=== PATIENT | male | born 1965 | race Caucasian/White ===

== ENCOUNTER 2016-06-28 20:02 | Emergency (ER) | payer OTHER ==
[~2016-06-28 20:02] MED LIST: CIPR500T3 PO; FLOM5CAP PO; HYDR1TAB97 PO; LISI20TA3 PO; OMEP40CA2 PO; ZANT1TAB PO; ZOFR4TAB3 PO
[2016-06-28] MEDS ORDERED: NORCO 5/325MG TABLET (BULK) As Ordered ONE (21:38)
[2016-06-28] MEDS ORDERED: IBUPROFEN 800 MG TAB As Ordered ONE (21:38)
[2016-06-28] MEDS ORDERED: CLINDAMYCIN 150 MG CAP As Ordered ONE (21:38)
--- NOTE | 2016-06-28 21:46 | EDDOCDS ---
Nurse's Notes [facility] Name: Cash Ch Age: 51 yrs Sex: Male : 1965 Arrival Date: 06/28/2016 Time: 20:02 Bed Triage 3 Private MD: TERRI MENSAH Diagnosis: Dental caries-Tooth Pain/Abscess/Fracture Presentation: 06/28 20:07 Presenting complaint: Patient states: Patient reports having tooth pain, present for jmb two days. Pain worse today. Patient denies calling dentist. Patient reports taking ibuprofen for pain. Adult Sepsis Screening: The patient does not have new or worsening altered mentation. Patient's respiratory rate is less than 22. Systolic blood pressure is greater than 100. Patient has a qSOFA score of 0- Negative Sepsis Screen. Suicide/Homicide risk assessment- the patient denies having any suicidal and/or homicidal ideations and does not present with any other emotional, behavioral or mental health complaints. Status: Patient is not a community services coordinator or dependent. Transition of care: patient was not received from another setting of care. 20:07 Acuity: RONI Level 5 jmb 20:07 Method Of Arrival: Walkin/Carried/Asstd jmb Triage Assessment: 20:09 General: Appears in no apparent distress, Behavior is appropriate for age, cooperative. jmb Pain: Location: mouth Pain currently is 10 out of 10 on a pain scale. HIV screening NA for this visit Offered previously. Neurological: Level of Consciousness is awake, alert, obeys commands, Oriented to person, place, time, Speech is normal, Facial symmetry appears normal, Facial symmetry: tongue is midline. EENT: Reports pain Pain is 10 out of 10 on a pain scale. Respiratory: Airway is patent Respiratory effort is even, Respiratory pattern is regular. GI: Abdomen is obese. Derm: Skin is pink, warm & dry. Musculoskeletal: Range of motion intact in all extremities. Historical: - Allergies: No known drug Allergies; - Home Meds: 1. lisinopril-hydrochlorothiazide 20-25 mg oral tab 1 tab once daily (Last dose: 06/28/2016 19:00) 2. omeprazole 40 mg Oral cpDR 1 cap once daily (Last dose: 06/28/2016 19:00) - PMHx: GERD; Hypertension; Kidney stones; - PSHx: elbow surgery; nipple tissue removal; Lithotripsy; - Social history: Smoking status: Patient uses tobacco products, heavy tobacco smoker. No barriers to communication noted, The patient speaks fluent Malaysian, Speaks appropriately for age. - Family history: Not pertinent. - : The pt / caregiver states he / she is not on anticoagulants. Home medication list is obtained from the patient. - Exposure Risk Screening:: None identified. Screenin:43 Screening information is obtained from the patient. Fall risk: No risks identified. ttb Assistance ADL's: requires no assistance with activities of daily living. Abuse/DV Screen: The patient / caregiver reports he/she is: not in a situation that causes fear, pain or injury. Nutritional screening: No deficits noted. Advance Directives: Currently, there is no health care proxy. home support is adequate. Assessment: 21:43 Adult Sepsis Screening: The patient does not have new or worsening altered mentation. ttb Patient's respiratory rate is less than 22. Systolic blood pressure is greater than 100. Patient has a qSOFA score of 0- Negative Sepsis Screen. General: Appears in no apparent distress, well nourished, well groomed, Behavior is appropriate for age, cooperative, pleasant. Pain: Location: right side of mouth, molars Pain currently is 9 out of 10 on a pain scale. Neurological: Level of Consciousness is awake, alert, Oriented to person, place, time. Cardiovascular: Chest pain is denied. Respiratory: No deficits noted. Airway is patent Respiratory effort is even, unlabored. GI: Denies nausea, vomiting, pain. Derm: Skin is pink, warm & dry. Vital Signs: 20:04 BP 169 / 85; Pulse 107; Resp 18 S; Temp 96.9; Pulse Ox 99% on R/A; Weight 108.86 kg dd6 (R); Height 5 ft. 11 in. (180.34 cm) (R); 21:31 BP 140 / 72 LA Sitting (man/reg); cln 21:41 Pulse 106; Resp 18; Temp 98.6; Pulse Ox 97% on R/A; Pain 9/10; ttb 20:04 Body Mass Index 33.47 (108.86 kg, 180.34 cm) dd6 Vitals: 20:04 Log In Time: June 28, 2016 at 20:02. dd6 ED Course: 20:04 Patient visited by Chris Nichols PCA. dd6 20:04 Francisco Mensah is Private Physician. dd6 20:04 TERRI MENSAH is Private Physician. dd6 20:04 Patient moved to Waiting dd6 20:05 Patient moved to Pre RCE dd6 20:08 Triage Initiated jmb 20:24 Patient moved to Triage 2 jmb 20:25 Patient moved to Pre RCE jmb 21:12 Patient moved to Triage 3 jmb 21:13 Odalys Richardson PA-C is PHCP. ef1 21:13 Del Wyman DO is Attending Physician. ef1 21:15 Patient visited by Sena Shipley,FLORES. ead 21:20 Patient visited by Odalys Richardson PA-C. ef1 21:31 Patient visited by Roxann Phelps PCA. cln 21:33 Patient visited by Sena Shipley,FLORES. ead 21:36 Ricky Brewer is Referral Physician. ef1 21:43 The patient / caregiver is instructed regarding the plan of care and ED course. Patient ttb has correct armband on for positive identification. 21:43 No IV's were initiated during this patient's visit. No procedures done that require ttb assistance. Administered Medications: 21:41 Drug: Clindamycin 300 mg [clindamycin 150 mg capsule (2 caps)] Route: PO; ttb 21:41 Drug: Ibuprofen 800 mg [ibuprofen 800 mg tablet (1 tabs)] Route: PO; ttb 21:43 Drug: HYDROcodone-acetaminophen 4 pack- 1 packets [hydrocodone 5 mg-acetaminophen 325 ttb mg tablet (1 tabs)] {Co-Signature: martha (Matteo Lara RN).} Route: PO; 21:43 Follow up: Response: Med's dispensed home ttb Order Results: There are currently no results for this order. Outcome: 21:36 Discharge ordered by Provider. ef1 21:43 Discharge Assessment: Patient awake, alert and oriented x 3. No cognitive and/or ttb functional deficits noted. Patient verbalized understanding of disposition instructions. Patient awake and alert. patient administered narcotics - no. The following High Risk Discharge criteria are identified: None. Discharged to home ambulatory. Condition: good Condition: stable Condition: improved. Discharge instructions given to patient, Instructed on discharge instructions, follow up and referral plans. medication usage, no driving heavy equipment, no drinking with medication, Demonstrated understanding of instructions, medications, no d/d with narcs Pt was receptive of discharge instructions/ teaching. Prescriptions given X 3. No special radiology studies were completed. Property :Personal belongings accompany Pt. 21:45 Patient left the ED. ttb Signatures: Chris Nichols, SENIOR HEALTH CONSULTANT SENIOR HEALTH CONSULTANT dd6 Odalys Richardson, STONEYC PACrowC ef1 Roseann Lawson RN RN Matteo Weeks RN RN Sena LópezRN RN Roxann Boudreaux, SENIOR HEALTH CONSULTANT SENIOR HEALTH CONSULTANT cln Matteo thomas MTDD
--- NOTE | 2016-06-28 21:46 | EDDOCDS ---
Physician Documentation [facility] Name: Cash Ch Age: 51 yrs Sex: Male : 1965 Arrival Date: 06/28/2016 Time: 20:02 Bed Triage 3 Private MD: TERRI MENSAH Disposition: 06/28/16 21:36 Discharged to Home/Self Care. Impression: Dental caries - Tooth Pain/Abscess/Fracture. - Condition is Stable. - Discharge Instructions: Dental Abscess, Dental Fracture, Dental Pain, [id number]. - Prescriptions for Clindamycin HCl 300 mg Oral Capsule - take 1 capsule by ORAL route every 6 hours; 40 capsule. Ibuprofen 800 mg Oral Tablet - take 1 tablet by ORAL route every 8 hours As needed take with food; 30 tablet. [place] 5- 325 mg Oral Tablet - take 1 tablet by ORAL route every 6 hours As needed MDD: 4 tabs; 6 tablet. - Dental Referral List, Medication Reconciliation, Local Pharmacy Hours form. - Follow up: Dentist Your; When: 1 - 2 days; Reason: Further diagnostic work-up, Recheck today's complaints, Continuance of care. Follow up: Emergency Department; Reason: Worsening of conditions. - Problem is new. - Symptoms have improved. Historical: - Allergies: No known drug Allergies; - Home Meds: 1. lisinopril-hydrochlorothiazide 20-25 mg oral tab 1 tab once daily (Last dose: 06/28/2016 19:00) 2. omeprazole 40 mg Oral cpDR 1 cap once daily (Last dose: 06/28/2016 19:00) - PMHx: GERD; Hypertension; Kidney stones; - PSHx: elbow surgery; nipple tissue removal; Lithotripsy; - Social history: Smoking status: Patient uses tobacco products, heavy tobacco smoker. No barriers to communication noted, The patient speaks fluent Portuguese, Speaks appropriately for age. - Family history: Not pertinent. - : The pt / caregiver states he / she is not on anticoagulants. Home medication list is obtained from the patient. - Exposure Risk Screening:: None identified. Vital Signs: 06/28 20:04 BP 169 / 85; Pulse 107; Resp 18 S; Temp 96.9; Pulse Ox 99% on R/A; Weight 108.86 kg / dd6 240 lbs (R); Height 5 ft. 11 in. (180.34 cm) (R); 21:31 BP 140 / 72 LA Sitting (man/reg); cln 21:41 Pulse 106; Resp 18; Temp 98.6; Pulse Ox 97% on R/A; Pain 9/10; ttb 20:04 Body Mass Index 33.47 (108.86 kg, 180.34 cm) dd6 MDM: 21:25 Recheck B/P ordered. ef1 21:35 HYDROcodone-acetaminophen 4 pack- 5 mg-325 mg 1 packets PO Per package directions; ef1 Dispense with patient. 1 po q4h prn for pain ordered. 21:35 Clindamycin 300 mg PO once ordered. ef1 21:35 Ibuprofen 800 mg PO once ordered. ef1 Administered Medications: 21:41 Drug: Clindamycin 300 mg [clindamycin 150 mg capsule (2 caps)] Route: PO; ttb 21:41 Drug: Ibuprofen 800 mg [ibuprofen 800 mg tablet (1 tabs)] Route: PO; ttb 21:43 Drug: HYDROcodone-acetaminophen 4 pack- 1 packets [hydrocodone 5 mg-acetaminophen 325 ttb mg tablet (1 tabs)] {Co-Signature: martha (Matteo Lara RN).} Route: PO; 21:43 Follow up: Response: Med's dispensed home ttb Signatures: Odalys Richardson PA-C PA-C ef1 Roseann Lawson RN RN ttb Becker, Joshua, RN RN jmb Joshua Becker RN jmb MTDD
--- NOTE | 2016-06-30 22:47 | EDDOCDS ---
Nurse's Notes [facility] Name: Cash Ch Age: 51 yrs Sex: Male : 1965 Arrival Date: 06/28/2016 Time: 20:02 Bed Triage 3 Private MD: TERRI MENSAH Diagnosis: Dental caries-Tooth Pain/Abscess/Fracture Presentation: 06/28 20:07 Presenting complaint: Patient states: Patient reports having tooth pain, present for jmb two days. Pain worse today. Patient denies calling dentist. Patient reports taking ibuprofen for pain. Adult Sepsis Screening: The patient does not have new or worsening altered mentation. Patient's respiratory rate is less than 22. Systolic blood pressure is greater than 100. Patient has a qSOFA score of 0- Negative Sepsis Screen. Suicide/Homicide risk assessment- the patient denies having any suicidal and/or homicidal ideations and does not present with any other emotional, behavioral or mental health complaints. Status: Patient is not a care services manager or dependent. Transition of care: patient was not received from another setting of care. 20:07 Acuity: RONI Level 5 jmb 20:07 Method Of Arrival: Walkin/Carried/Asstd jmb Triage Assessment: 20:09 General: Appears in no apparent distress, Behavior is appropriate for age, cooperative. jmb Pain: Location: mouth Pain currently is 10 out of 10 on a pain scale. HIV screening NA for this visit Offered previously. Neurological: Level of Consciousness is awake, alert, obeys commands, Oriented to person, place, time, Speech is normal, Facial symmetry appears normal, Facial symmetry: tongue is midline. EENT: Reports pain Pain is 10 out of 10 on a pain scale. Respiratory: Airway is patent Respiratory effort is even, Respiratory pattern is regular. GI: Abdomen is obese. Derm: Skin is pink, warm & dry. Musculoskeletal: Range of motion intact in all extremities. Historical: - Allergies: No known drug Allergies; - Home Meds: 1. lisinopril-hydrochlorothiazide 20-25 mg oral tab 1 tab once daily (Last dose: 06/28/2016 19:00) 2. omeprazole 40 mg Oral cpDR 1 cap once daily (Last dose: 06/28/2016 19:00) - PMHx: GERD; Hypertension; Kidney stones; - PSHx: elbow surgery; nipple tissue removal; Lithotripsy; - Social history: Smoking status: Patient uses tobacco products, heavy tobacco smoker. No barriers to communication noted, The patient speaks fluent Emirati, Speaks appropriately for age. - Family history: Not pertinent. - : The pt / caregiver states he / she is not on anticoagulants. Home medication list is obtained from the patient. - Exposure Risk Screening:: None identified. Screenin:43 Screening information is obtained from the patient. Fall risk: No risks identified. ttb Assistance ADL's: requires no assistance with activities of daily living. Abuse/DV Screen: The patient / caregiver reports he/she is: not in a situation that causes fear, pain or injury. Nutritional screening: No deficits noted. Advance Directives: Currently, there is no health care proxy. home support is adequate. Assessment: 21:43 Adult Sepsis Screening: The patient does not have new or worsening altered mentation. ttb Patient's respiratory rate is less than 22. Systolic blood pressure is greater than 100. Patient has a qSOFA score of 0- Negative Sepsis Screen. General: Appears in no apparent distress, well nourished, well groomed, Behavior is appropriate for age, cooperative, pleasant. Pain: Location: right side of mouth, molars Pain currently is 9 out of 10 on a pain scale. Neurological: Level of Consciousness is awake, alert, Oriented to person, place, time. Cardiovascular: Chest pain is denied. Respiratory: No deficits noted. Airway is patent Respiratory effort is even, unlabored. GI: Denies nausea, vomiting, pain. Derm: Skin is pink, warm & dry. Vital Signs: 20:04 BP 169 / 85; Pulse 107; Resp 18 S; Temp 96.9; Pulse Ox 99% on R/A; Weight 108.86 kg dd6 (R); Height 5 ft. 11 in. (180.34 cm) (R); 21:31 BP 140 / 72 LA Sitting (man/reg); cln 21:41 Pulse 106; Resp 18; Temp 98.6; Pulse Ox 97% on R/A; Pain 9/10; ttb 20:04 Body Mass Index 33.47 (108.86 kg, 180.34 cm) dd6 Vitals: 20:04 Log In Time: June 28, 2016 at 20:02. dd6 ED Course: 20:04 Patient visited by Chris Nichols, DEANDRA. dd6 20:04 Francisco Mensah is Private Physician. dd6 20:04 TERRI MENSAH is Private Physician. dd6 20:04 Patient moved to Waiting dd6 20:05 Patient moved to Pre RCE dd6 20:08 Triage Initiated jmb 20:24 Patient moved to Triage 2 jmb 20:25 Patient moved to Pre RCE jmb 21:12 Patient moved to Triage 3 jmb 21:13 Odalys Richardson PA-C is PHCP. ef1 21:13 Del Wyman DO is Attending Physician. ef1 21:15 Patient visited by Sena Shipley,FLORES. ead 21:20 Patient visited by Odalys Richardson PA-C. ef1 21:31 Patient visited by Roxann Phelps PCA. cln 21:33 Patient visited by Sena Shipley,FLORES. ead 21:36 Kenji Brewert is Referral Physician. ef1 21:43 The patient / caregiver is instructed regarding the plan of care and ED course. Patient ttb has correct armband on for positive identification. 21:43 No IV's were initiated during this patient's visit. No procedures done that require ttb assistance. 21:55 [facility] Payment Agreement was scanned into [employer] and attached to record. jpb 06/30 08:23 T-Sheet-- Draft Copy was scanned into [employer] and attached to record. gb Administered Medications: 06/28 21:41 Drug: Clindamycin 300 mg [clindamycin 150 mg capsule (2 caps)] Route: PO; ttb 21:41 Drug: Ibuprofen 800 mg [ibuprofen 800 mg tablet (1 tabs)] Route: PO; ttb 21:43 Drug: HYDROcodone-acetaminophen 4 pack- 1 packets [hydrocodone 5 mg-acetaminophen 325 ttb mg tablet (1 tabs)] {Co-Signature: martha (Matteo Lara RN).} Route: PO; 21:43 Follow up: Response: Med's dispensed home ttb Order Results: There are currently no results for this order. Outcome: 21:36 Discharge ordered by Provider. ef1 21:43 Discharge Assessment: Patient awake, alert and oriented x 3. No cognitive and/or ttb functional deficits noted. Patient verbalized understanding of disposition instructions. Patient awake and alert. patient administered narcotics - no. The following High Risk Discharge criteria are identified: None. Discharged to home ambulatory. Condition: good Condition: stable Condition: improved. Discharge instructions given to patient, Instructed on discharge instructions, follow up and referral plans. medication usage, no driving heavy equipment, no drinking with medication, Demonstrated understanding of instructions, medications, no d/d with narcs Pt was receptive of discharge instructions/ teaching. Prescriptions given X 3. No special radiology studies were completed. Property :Personal belongings accompany Pt. 21:45 Patient left the ED. ttb Signatures: Aubrie Gomez, Reg Reg gb Chris Nichols, PAPER COLORER PAPER COLORER dd6 Odalys Richardson, PA-C PA-C ef1 Brigido Diamond Teresa, RN RN Matteo Weeks,RN RN Sena LópezRN RN Roxann Boudreaux, PAPER COLORER PAPER COLORER cln Matteo thomas Chart Complete MTDLeoncio
--- NOTE | 2016-06-30 22:47 | EDDOCDS ---
Physician Documentation [facility] Name: Cash Ch Age: 51 yrs Sex: Male : 1965 Arrival Date: 06/28/2016 Time: 20:02 Bed Triage 3 Private MD: TERRI MENSAH Disposition: 06/28/16 21:36 Discharged to Home/Self Care. Impression: Dental caries - Tooth Pain/Abscess/Fracture. - Condition is Stable. - Discharge Instructions: Dental Abscess, Dental Fracture, Dental Pain, [id number]. - Prescriptions for Clindamycin HCl 300 mg Oral Capsule - take 1 capsule by ORAL route every 6 hours; 40 capsule. Ibuprofen 800 mg Oral Tablet - take 1 tablet by ORAL route every 8 hours As needed take with food; 30 tablet. [place] 5- 325 mg Oral Tablet - take 1 tablet by ORAL route every 6 hours As needed MDD: 4 tabs; 6 tablet. - Dental Referral List, Medication Reconciliation, Local Pharmacy Hours form. - Follow up: Dentist Your; When: 1 - 2 days; Reason: Further diagnostic work-up, Recheck today's complaints, Continuance of care. Follow up: Emergency Department; Reason: Worsening of conditions. - Problem is new. - Symptoms have improved. Historical: - Allergies: No known drug Allergies; - Home Meds: 1. lisinopril-hydrochlorothiazide 20-25 mg oral tab 1 tab once daily (Last dose: 06/28/2016 19:00) 2. omeprazole 40 mg Oral cpDR 1 cap once daily (Last dose: 06/28/2016 19:00) - PMHx: GERD; Hypertension; Kidney stones; - PSHx: elbow surgery; nipple tissue removal; Lithotripsy; - Social history: Smoking status: Patient uses tobacco products, heavy tobacco smoker. No barriers to communication noted, The patient speaks fluent Iraqi, Speaks appropriately for age. - Family history: Not pertinent. - : The pt / caregiver states he / she is not on anticoagulants. Home medication list is obtained from the patient. - Exposure Risk Screening:: None identified. Vital Signs: 06/28 20:04 BP 169 / 85; Pulse 107; Resp 18 S; Temp 96.9; Pulse Ox 99% on R/A; Weight 108.86 kg / dd6 240 lbs (R); Height 5 ft. 11 in. (180.34 cm) (R); 21:31 BP 140 / 72 LA Sitting (man/reg); cln 21:41 Pulse 106; Resp 18; Temp 98.6; Pulse Ox 97% on R/A; Pain 9/10; ttb 20:04 Body Mass Index 33.47 (108.86 kg, 180.34 cm) dd6 MDM: 21:25 Recheck B/P ordered. ef1 21:35 HYDROcodone-acetaminophen 4 pack- 5 mg-325 mg 1 packets PO Per package directions; ef1 Dispense with patient. 1 po q4h prn for pain ordered. 21:35 Clindamycin 300 mg PO once ordered. ef1 21:35 Ibuprofen 800 mg PO once ordered. ef1 21:55 Financial registration complete. [facility] :55 [facility] Payment Agreement was scanned into [employer] and attached to record. [facility] 06/30 08:23 T-Sheet-- Draft Copy was scanned into [employer] and attached to record. gb Administered Medications: 06/28 21:41 Drug: Clindamycin 300 mg [clindamycin 150 mg capsule (2 caps)] Route: PO; ttb 21:41 Drug: Ibuprofen 800 mg [ibuprofen 800 mg tablet (1 tabs)] Route: PO; ttb 21:43 Drug: HYDROcodone-acetaminophen 4 pack- 1 packets [hydrocodone 5 mg-acetaminophen 325 ttb mg tablet (1 tabs)] {Co-Signature: martha (Matteo Lara RN).} Route: PO; 21:43 Follow up: Response: Med's dispensed home ttb Signatures: Aubrie Gomez, Reg Reg Odalys Stevenson, PACrowC PAMary ef1 Brigido Diamond Teresa, RN RN Matteo Weeks RN RN jmb Joshua Becker RN jmb The chart was reviewed and I authenticate all verbal orders and agree with the evaluation and treatment provided.Attachments: :55 [facility] Payment Agreement [facility] 06/30 08:23 T-Sheet-- Draft Copy gb Chart Complete MTDD
--- NOTE | 2016-06-30 22:47 | EDDOCDS ---
Physician Documentation [facility] Name: Cash Ch Age: 51 yrs Sex: Male : 1965 Arrival Date: 06/28/2016 Time: 20:02 Bed Triage 3 Private MD: TERRI MENSAH Disposition: 06/28/16 21:36 Discharged to Home/Self Care. Impression: Dental caries - Tooth Pain/Abscess/Fracture. - Condition is Stable. - Discharge Instructions: Dental Abscess, Dental Fracture, Dental Pain, [id number]. - Prescriptions for Clindamycin HCl 300 mg Oral Capsule - take 1 capsule by ORAL route every 6 hours; 40 capsule. Ibuprofen 800 mg Oral Tablet - take 1 tablet by ORAL route every 8 hours As needed take with food; 30 tablet. [place] 5- 325 mg Oral Tablet - take 1 tablet by ORAL route every 6 hours As needed MDD: 4 tabs; 6 tablet. - Dental Referral List, Medication Reconciliation, Local Pharmacy Hours form. - Follow up: Dentist Your; When: 1 - 2 days; Reason: Further diagnostic work-up, Recheck today's complaints, Continuance of care. Follow up: Emergency Department; Reason: Worsening of conditions. - Problem is new. - Symptoms have improved. Historical: - Allergies: No known drug Allergies; - Home Meds: 1. lisinopril-hydrochlorothiazide 20-25 mg oral tab 1 tab once daily (Last dose: 06/28/2016 19:00) 2. omeprazole 40 mg Oral cpDR 1 cap once daily (Last dose: 06/28/2016 19:00) - PMHx: GERD; Hypertension; Kidney stones; - PSHx: elbow surgery; nipple tissue removal; Lithotripsy; - Social history: Smoking status: Patient uses tobacco products, heavy tobacco smoker. No barriers to communication noted, The patient speaks fluent [place] Island[place], Speaks appropriately for age. - Family history: Not pertinent. - : The pt / caregiver states he / she is not on anticoagulants. Home medication list is obtained from the patient. - Exposure Risk Screening:: None identified. Vital Signs: 06/28 20:04 BP 169 / 85; Pulse 107; Resp 18 S; Temp 96.9; Pulse Ox 99% on R/A; Weight 108.86 kg / dd6 240 lbs (R); Height 5 ft. 11 in. (180.34 cm) (R); 21:31 BP 140 / 72 LA Sitting (man/reg); cln 21:41 Pulse 106; Resp 18; Temp 98.6; Pulse Ox 97% on R/A; Pain 9/10; ttb 20:04 Body Mass Index 33.47 (108.86 kg, 180.34 cm) dd6 MDM: 21:25 Recheck B/P ordered. ef1 21:35 HYDROcodone-acetaminophen 4 pack- 5 mg-325 mg 1 packets PO Per package directions; ef1 Dispense with patient. 1 po q4h prn for pain ordered. 21:35 Clindamycin 300 mg PO once ordered. ef1 21:35 Ibuprofen 800 mg PO once ordered. ef1 21:55 Financial registration complete. [facility] :55 [facility] Payment Agreement was scanned into [employer] and attached to record. [facility] 06/30 08:23 T-Sheet-- Draft Copy was scanned into [employer] and attached to record. gb Administered Medications: 06/28 21:41 Drug: Clindamycin 300 mg [clindamycin 150 mg capsule (2 caps)] Route: PO; ttb 21:41 Drug: Ibuprofen 800 mg [ibuprofen 800 mg tablet (1 tabs)] Route: PO; ttb 21:43 Drug: HYDROcodone-acetaminophen 4 pack- 1 packets [hydrocodone 5 mg-acetaminophen 325 ttb mg tablet (1 tabs)] {Co-Signature: martha (Matteo Lara RN).} Route: PO; 21:43 Follow up: Response: Med's dispensed home ttb Signatures: Aubrie Gomez, Reg Reg Odalys Stevenson, PACrowC PAMary ef1 Brigido Diamond Teresa, RN RN Matteo Weeks RN RN jmb Joshua Becker RN jmb The chart was reviewed and I authenticate all verbal orders and agree with the evaluation and treatment provided.Attachments: :55 [facility] Payment Agreement [facility] 06/30 08:23 T-Sheet-- Draft Copy gb Chart Complete MTDD
== END 2016-06-28 21:45 | disposition home or self-care (01) ==
LOC: M ED 20:02
DX: K04.7 Periapical abscess without sinus (principal); K02.9 Dental caries, unspecified; S02.5XXA Fracture of tooth (traumatic), initial encounter for closed fracture; X58.XXXA Exposure to other specified factors, initial encounter; Y92.89 Other specified places as the place of occurrence of the external cause; Y93.89 Activity, other specified; Y99.8 Other external cause status; I10 Essential (primary) hypertension; K21.9 Gastro-esophageal reflux disease without esophagitis; Z87.442 Personal history of urinary calculi; Z79.899 Other long term (current) drug therapy

== ENCOUNTER → 2016-07-07 | Outpatient (CLI) | payer OTHER ==
[~2016-07-07] MED LIST changes: +HYDR-3713 PO; -HYDR1TAB97 PO
== END ==
LOC: M RAD 17:26
PROVIDERS: ATTEND Family Medicine Addiction Medicine
DX: M25.512 Pain in left shoulder (principal); Z53.9 Procedure and treatment not carried out, unspecified reason

== ENCOUNTER → 2016-07-17 | Outpatient (CLI) | payer OTHER ==
--- NOTE | 2016-07-20 09:26 | SLEEPHOME ---
DATE OF PROCEDURE: 07/17/2016 ORDERED BY: Holli Barnard. INTERPRETATION: Diagnostic home sleep testing was performed due to concern for the obstructive sleep apnea syndrome in this patient with a history of excessive somnolence, nonrestorative sleep and comorbidities of hypertension. For testing, a NOX-T3 respiratory monitoring device was utilized. Continuous record was made of pulse, oxygen saturation, chest and abdominal strain, air flow and body position. 11 hours and 59 minutes of data were reviewed. Of these, 7 hours and 14 minutes were marked as time in bed. During the interval marked time in bed, there were 521 respiratory events identified of 10 seconds in duration or greater for a respiratory event index of 71.9. The events were primarily obstructive but both mixed and central apneas were seen. The patient's baseline pulse rate was 82 beats per minute. Pulse rate ranged 53-102. Baseline saturation 92.8%. Lowest oxygen saturation 65%. Testing was performed in both the supine and non-supine positions. IMPRESSION: Abnormal home sleep testing with repetitive respiratory events and oxygen desaturations to 65% with a respiratory event index of 71.9 is consistent with severe obstructive sleep apnea syndrome. RECOMMENDATION: The patient should be referred for in laboratory pressure titration.
== END ==
LOC: M SLEEP 07-12 15:42
PROVIDERS: ATTEND Nurse Practitioner Adult Health
DX: G47.30 Sleep apnea, unspecified (principal)

== ENCOUNTER → 2016-07-17 | Outpatient (CLI) | payer OTHER ==
--- NOTE | 2016-07-17 16:58 | REP ---
MRI LEFT SHOULDER: TECHNIQUE: Axial T2 fat sat, gradient echo, sagittal oblique T2 fat sat, coronal oblique T1, T2 fat sat. Supraspinatus tendon demonstrates mild diffuse increased signal which is ill-defined, compatible with tendinopathy/tendonitis. No focal rotator cuff tear is seen. Mild fluid in the adjacent subacromial subdeltoid bursae likely represents an element of bursitis. There are mild hypertrophic degenerative changes of the acromioclavicular joint with mildly curve shape of the acromion. Biceps tendon is within the bicipital groove with no tenosynovitis. There is no Hill Sach's deformity. Deltoid muscle demonstrates no abnormal signal. Biceps labral complex appears intact. There is no evidence of a SLAP lesion or labral tear. A few subchondral cysts are seen in the superomedial humeral head. There is no occult fracture. Mild subchondral marrow edema is seen in the acromion. There is no paralabral cyst. IMPRESSION: Supraspinatus tendinopathy/tendonitis without evidence of a rotator cuff tear. No labral tear. There appears to be mild subacromial subdeltoid bursitis. Mild hypertrophic degenerative changes of the acromioclavicular joint. Subchondral cystic changes of the humeral head. Signed by Gamaliel Sal MD 07/17/2016 05:05 P
== END ==
LOC: M RAD 15:14
PROVIDERS: ATTEND Family Medicine Addiction Medicine
DX: M75.32 Calcific tendinitis of left shoulder (principal)

== ENCOUNTER → 2016-08-25 | Outpatient (CLI) | payer OTHER ==
[2016-08-25 15:25] LABS: MEAN CORPUSCULAR HEMOGLOBIN 32.1 pg (27.0-33.0); MEAN CORPUSCULAR HGB CONC 35.8 g/dl (32.0-36.5); MEAN CORPUSCULAR VOLUME 89.5 fl (80.0-96.0); RED CELL DISTRIBUTION WIDTH 12.1 % (11.5-14.5); WHITE BLOOD COUNT 6.6 K/mm3 (4.0-10.0)
[2016-08-25 15:51] LABS: ANION GAP 5 MEQ/L (8-16); BLOOD UREA NITROGEN 17 MG/DL (7-18); CALCIUM LEVEL 9.4 MG/DL (8.5-10.1); CARBON DIOXIDE LEVEL 33 MEQ/L (21-32); CHLORIDE LEVEL 101 MEQ/L (98-107); CREATININE FOR GFR 1.15 MG/DL (0.70-1.30); GLOMERULAR FILTRATION RATE > 60.0 (>56); GLUCOSE, FASTING 151 MG/DL (70-105); SODIUM LEVEL 139 MEQ/L (136-145)
== END ==
LOC: M LAB 15:02
PROVIDERS: ATTEND Internal Medicine Cardiovascular Disease
DX: I25.10 Atherosclerotic heart disease of native coronary artery without angina pectoris (principal)

== ENCOUNTER → 2016-09-04 | Outpatient (CLI) | payer OTHER ==
--- NOTE | 2016-09-06 10:09 | SLEEPCENT ---
DATE OF STUDY: 09/04/2016 ORDERING PROVIDER: Holli Barnard NP Nocturnal polysomnography was performed for titration of pressure therapy in this patient with a clinical diagnosis of obstructive sleep apnea syndrome confirmed by home testing revealing a respiratory event index of 62. For testing, the patient was fit with a ResMed Quattro full face mask of medium size. 4 cm of water pressure were applied to the circuit, and the lights were extinguished. 7 hours and 15 minutes of data were reviewed. There were 279 minutes of sleep identified. Sleep latency was short at 3.5 minutes. Rapid eye movement (REM) sleep was delayed at 342 minutes. Sleep architecture improved late in the study. Periods of awake in the middle portion of the test resulted in a reduced sleep efficiency of 65%. The patient's electrocardiogram (EKG) showed a sinus rhythm with an average heart rate of 80 beats per minute. Electroencephalogram (EEG) showed reasonably normal waveforms for awake and sleep. Respiratory events were found best palliated with continuous positive airway pressure (CPAP) at a pressure of +9. CPAP tolerance was good. The remaining measures of sleep physiology were reasonably normal. IMPRESSION: Obstructive sleep apnea syndrome (G47.33). RECOMMENDATION: Nightly use of pressure therapy 9 cm of water.
== END ==
LOC: M SLEEP 19:49
PROVIDERS: ATTEND Nurse Practitioner Adult Health
DX: G47.33 Obstructive sleep apnea (adult) (pediatric) (principal)

== ENCOUNTER → 2016-11-16 | Outpatient (CLI) | payer OTHER | LOC: M LAB 10:38 | PROVIDERS: ATTEND Internal Medicine Cardiovascular Disease | DX: E78.2 Mixed hyperlipidemia (principal) ==

== ENCOUNTER 2016-12-14 20:03 | Emergency (ER) | payer OTHER ==
[~2016-12-14] VITALS: Ht 180.3 cm; Wt 103.7 kg
[2016-12-14 20:03] VITALS: BP 121/77
[2016-12-14] MEDS ORDERED: CARV6.25 PO (20:23)
[2016-12-14] MEDS ORDERED: CLOP75TA2 PO (20:23)
[2016-12-14] MEDS ORDERED: ATOR40TA75 PO (20:24)
[2016-12-14] MEDS ORDERED: AMOX500C PO (20:39)
[2016-12-14] MEDS ORDERED: IBUP80TA PO (20:39)
[2016-12-14] MEDS ORDERED: NORCO 5/325MG TABLET (BULK FOR ED) PO ONE (20:45)
[2016-12-14] MEDS ORDERED: AMOXICILLIN 500 MG CAP PO ONE (20:45)
== END 2016-12-14 21:09 | disposition home or self-care (01) ==
LOC: M ED 21:04
DX: G47.33 Obstructive sleep apnea (adult) (pediatric) (principal); G50.1 Atypical facial pain; H92.01 Otalgia, right ear; I10 Essential (primary) hypertension; I25.10 Atherosclerotic heart disease of native coronary artery without angina pectoris; K21.9 Gastro-esophageal reflux disease without esophagitis; F17.200 Nicotine dependence, unspecified, uncomplicated; Z87.442 Personal history of urinary calculi; Z95.5 Presence of coronary angioplasty implant and graft; Z79.02 Long term (current) use of antithrombotics/antiplatelets; Z79.899 Other long term (current) drug therapy

== ENCOUNTER → 2017-01-31 | Outpatient (CLI) | payer OTHER ==
[~2017-01-31] MED LIST changes: +AMOX500C PO; +ATOR40TA75 PO; +CARV6.25 PO; +CLOP75TA2 PO; +IBUP80TA PO
--- NOTE | 2017-01-31 16:07 | REP ---
PA and lateral chest: Comparison is 07/02/2012. The lung bonilla are clear. The cardiac size is normal The joseluis, mediastinum, and bony thorax are unremarkable. Impression: Negative PA and lateral chest. Signed by Gamaliel Dumont MD 01/31/2017 03:59 P
--- NOTE | 2017-01-31 23:00 | ECGEPIP ---
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
== END ==
LOC: M EKG 12:03
PROVIDERS: ATTEND Family Medicine Addiction Medicine
DX: M54.6 Pain in thoracic spine (principal); I25.798 Atherosclerosis of other coronary artery bypass graft(s) with other forms of angina pectoris

== ENCOUNTER → 2017-02-28 | Outpatient (CLI) | payer OTHER ==
[2017-02-28 18:20] LABS: MEAN CORPUSCULAR HEMOGLOBIN 31.9 pg (27.0-33.0); MEAN CORPUSCULAR HGB CONC 33.9 g/dl (32.0-36.5); MEAN CORPUSCULAR VOLUME 94.1 fl (80.0-96.0); RED CELL DISTRIBUTION WIDTH 12.7 % (11.5-14.5); WHITE BLOOD COUNT 5.8 K/mm3 (4.0-10.0)
== END ==
LOC: M LAB 15:58
PROVIDERS: ATTEND Nurse Practitioner Family
DX: I25.10 Atherosclerotic heart disease of native coronary artery without angina pectoris (principal)

== ENCOUNTER → 2017-03-07 | Outpatient (CLI) | payer OTHER ==
--- NOTE | 2017-03-07 19:13 | REP ---
Lumbar spine three views: Comparison is 09/29/2005. Vertebral body heights, interspacing alignment are normal and unchanged. The pedicles, facets and sacroiliac articulations are unremarkable and unchanged. Vascular calcified atheroma is incidentally noted in the abdominal aorta, unchanged. Impression: Negative lumbar spine. No interval change. Signed by Gamaliel Dumont MD 03/07/2017 07:03 P
== END ==
LOC: M LAB 17:09
PROVIDERS: ATTEND Family Medicine Addiction Medicine
DX: M54.5 Low back pain (principal)

== ENCOUNTER → 2017-05-22 | Outpatient (CLI) | payer OTHER ==
[2017-05-22 16:27] LABS: ALBUMIN 3.8 GM/DL (3.2-5.2); ALBUMIN/GLOBULIN RATIO 1.15 (1.00-1.93); BILIRUBIN,DIRECT 0.2 MG/DL (0.0-0.2); BILIRUBIN,TOTAL 0.5 MG/DL (0.2-1.0); TOTAL PROTEIN 7.1 GM/DL (6.4-8.2)
== END ==
LOC: M LAB 15:15
PROVIDERS: ATTEND Nurse Practitioner Family
DX: E78.2 Mixed hyperlipidemia (principal)

== ENCOUNTER → 2017-05-30 | Outpatient (CLI) | payer OTHER ==
--- NOTE | 2017-05-31 06:11 | REP ---
RIGHT ELBOW: CLINICAL: Pain. TECHNIQUE: AP, lateral, bilateral oblique views of the right elbow. COMPARISON: None. FINDINGS: Patient is noted to be status post prior open reduction and fixation for proximal ulnar fractures. Small loose bodies along the posterior aspect of the olecranon process are suggested along with mild posttraumatic degenerative changes. No acute fracture or dislocation. No effusion. IMPRESSION: Mild posttraumatic degenerative changes predominately noted along the posterior aspect of the ulna and olecranon process. Unreviewed
== END ==
LOC: M LAB 16:38
PROVIDERS: ATTEND Family Medicine Addiction Medicine
DX: M25.521 Pain in right elbow (principal)

== ENCOUNTER 2017-06-21 03:15 | Emergency (ER) | payer OTHER ==
[2017-06-21] MEDS ORDERED: LIDOCAINE W/EPINEPHRINE 1% 20ML VIAL As Ordered (03:59)
[2017-06-21] MEDS: LIDOCAINE W/EPINEPHRINE 1% 20ML VIAL SC (04:15)
[2017-06-21] MEDS: CETACAINE SPRAY 5GM TOP (04:15)
== END 2017-06-21 04:43 | disposition home or self-care (01) ==
LOC: M ED 03:15
DX: K08.89 Other specified disorders of teeth and supporting structures (principal); I10 Essential (primary) hypertension; E78.5 Hyperlipidemia, unspecified; K21.9 Gastro-esophageal reflux disease without esophagitis; F17.210 Nicotine dependence, cigarettes, uncomplicated; Z79.01 Long term (current) use of anticoagulants; Z79.899 Other long term (current) drug therapy
CPT/HCPCS: 64400

== ENCOUNTER 2017-11-20 04:48 | Emergency (ER) | payer OTHER ==
[2017-11-20] MEDS: NS 500 ML IV (06:30)
[2017-11-20 06:33] LABS: BASO # 0.1 10^3/uL (0.0-0.2); BASO % 0.8 % (0.0-1.0); EOS # 0.4 10^3/uL (0.0-0.50); EOS % 5.8 % (0.0-3.0); HEMATOCRIT 45.2 % (42.0-52.0); HEMOGLOBIN 15.8 g/dl (13.5-17.5); IMMATURE GRANULOCYTE % 0.1 % (0-3.0); LYMPH # 2.4 10^3/uL (1.5-4.5); LYMPH % 33.7 % (24.0-44.0); MEAN CORPUSCULAR HEMOGLOBIN 32.3 pg (27.0-33.0); MEAN CORPUSCULAR VOLUME 92.4 fl (80.0-96.0); MONO # 0.6 10^3/uL (0.0-0.8); MONO % 8.5 % (0.0-5.0); NEUTROPHILS # 3.6 10^3/uL (1.8-7.7); NEUTROPHILS % 51.1 % (36.0-66.0); PLATELET COUNT, AUTOMATED 201 10^3/uL (150-450); RED BLOOD COUNT 4.89 10^6/uL (4.30-6.10); RED CELL DISTRIBUTION WIDTH 12.5 % (11.5-14.5); WHITE BLOOD COUNT 7.1 10^3/uL (4.0-10.0)
[2017-11-20 06:37] LABS: ANION GAP 4 MEQ/L (8-16); BLOOD UREA NITROGEN 15 MG/DL (7-18); CALCIUM LEVEL 8.5 MG/DL (8.5-10.1); CARBON DIOXIDE LEVEL 27 MEQ/L (21-32); CHLORIDE LEVEL 112 MEQ/L (98-107); CREATININE FOR GFR 1.23 MG/DL (0.70-1.30); GLOMERULAR FILTRATION RATE > 60.0 (>56); GLUCOSE, FASTING 148 MG/DL (70-100); POTASSIUM SERUM 3.9 MEQ/L (3.5-5.1); SODIUM LEVEL 143 MEQ/L (136-145)
[2017-11-20] MEDS: MORPHINE 4 MG/ML 1ML VIAL/SYRINGE (J2270) IV (06:41)
[2017-11-20] MEDS: HYDROmorphone HCL 1 MG/ML SYRINGE (J1170) IV ×2 (07:17→08:14)
[2017-11-20 07:38] LABS: KETONE, URINE AUTO RFX TRACE mg/dL (NEGATIVE); LEUKOCYTE ESTERASE UR AUTO RFX TRACE (NEGATIVE); MUCUS, URINE RFX SMALL (NEGATIVE); NITRITE, URINE AUTO RFX NEGATIVE (NEGATIVE); RBC, URINE AUTO RFX 105 /HPF (0-3); SPECIFIC GRAVITY UR AUTO RFX 1.033 (1.002-1.035); SQUAM EPITHELIAL CELL UR AURFX 0 /HPF (0-6); WBC, URINE AUTO RFX 4 /HPF (0-3)
== END 2017-11-20 08:46 | disposition home or self-care (01) ==
LOC: M ED 04:48
DX: N20.1 Calculus of ureter (principal); N13.30 Unspecified hydronephrosis; K57.30 Diverticulosis of large intestine without perforation or abscess without bleeding; F17.200 Nicotine dependence, unspecified, uncomplicated; Z79.01 Long term (current) use of anticoagulants; Z79.82 Long term (current) use of aspirin; Z79.899 Other long term (current) drug therapy; Z87.442 Personal history of urinary calculi; Z95.5 Presence of coronary angioplasty implant and graft
CPT/HCPCS: J1170

== ENCOUNTER → 2017-12-19 | Outpatient (REF) | payer OTHER ==
[2017-12-19 18:47] LABS: APPEARANCE, URINE CLEAR (CLEAR); BACTERIA, URINE AUTO NEGATIVE (NEGATIVE); BILIRUBIN, URINE AUTO NEGATIVE (NEGATIVE); BLOOD, URINE BLOOD NEGATIVE (NEGATIVE); COLOR, URINE YELLOW (YELLOW); GLUCOSE, URINE (UA) AUTO NEGATIVE (NEGATIVE); KETONE, URINE AUTO TRACE mg/dL (NEGATIVE); LEUKOCYTE ESTERASE, URINE AUTO NEGATIVE (NEGATIVE); MUCUS, URINE SMALL (NEGATIVE); NITRITE, URINE AUTO NEGATIVE (NEGATIVE); PROTEIN, URINE AUTO NEGATIVE (NEGATIVE); RBC, URINE AUTO 0 /HPF (0-3); SQUAMOUS EPITHELIAL CELL UR AU 0 /HPF (0-6); WBC, URINE AUTO 2 /HPF (0-3)
== END ==
LOC: M SMT 17:06
DX: N20.0 Calculus of kidney (principal)

== ENCOUNTER → 2017-12-24 | Outpatient (CLI) | payer OTHER | LOC: M RAD 16:16 | DX: N20.0 Calculus of kidney (principal) | CPT/HCPCS: 74018 ==

== ENCOUNTER → 2018-03-11 | Outpatient (CLI) | payer OTHER ==
[2018-03-11 15:48] LABS: BASO % 0.3 % (0.0-1.0); EOS # 0.4 10^3/uL (0.0-0.50); HEMATOCRIT 43.5 % (42.0-52.0); IMMATURE GRANULOCYTE % 0.3 % (0-3.0); LYMPH # 1.4 10^3/uL (1.5-4.5); LYMPH % 24.6 % (24.0-44.0); MEAN CORPUSCULAR HEMOGLOBIN 31.9 pg (27.0-33.0); MEAN CORPUSCULAR HGB CONC 34.5 g/dl (32.0-36.5); MEAN CORPUSCULAR VOLUME 92.6 fl (80.0-96.0); MONO # 0.4 10^3/uL (0.0-0.8); MONO % 6.8 % (0.0-5.0); NEUTROPHILS # 3.6 10^3/uL (1.8-7.7); PLATELET COUNT, AUTOMATED 192 10^3/uL (150-450); RED CELL DISTRIBUTION WIDTH 12.2 % (11.5-14.5); WHITE BLOOD COUNT 5.9 10^3/uL (4.0-10.0)
[2018-03-11 16:21] LABS: ALBUMIN 3.7 GM/DL (3.2-5.2); ALBUMIN/GLOBULIN RATIO 1.32 (1.00-1.93); ALKALINE PHOSPHATASE 130 U/L (45-117); ALT/SGPT 44 U/L (12-78); ANION GAP 8 MEQ/L (8-16); AST/SGOT 23 U/L (7-37); BILIRUBIN,TOTAL 0.4 MG/DL (0.2-1.0); BLOOD UREA NITROGEN 13 MG/DL (7-18); CALCIUM LEVEL 9.2 MG/DL (8.5-10.1); CARBON DIOXIDE LEVEL 26 MEQ/L (21-32); CHLORIDE LEVEL 108 MEQ/L (98-107); CREATININE FOR GFR 0.98 MG/DL (0.70-1.30); GLOMERULAR FILTRATION RATE > 60.0 (>56); GLUCOSE, FASTING 103 MG/DL (70-100); SODIUM LEVEL 142 MEQ/L (136-145); TOTAL PROTEIN 6.5 GM/DL (6.4-8.2)
== END ==
LOC: M LAB 15:19
DX: I25.10 Atherosclerotic heart disease of native coronary artery without angina pectoris (principal)
CPT/HCPCS: 80053

== ENCOUNTER 2018-06-27 23:08 | Emergency (ER) | payer OTHER ==
[~2018-06-27] VITALS: Ht 180.3 cm; Wt 97.7 kg
[2018-06-27 23:08] VITALS: BP 145/77
[~2018-06-27 23:08] MED LIST changes: +ASPI81CH32 PO; +CLEO150C PO; +FLOM0.4C39 PO; -FLOM5CAP PO; +LISI-538 PO; +PERC5TAB12 PO; +ZANT150T15 PO; -ZANT1TAB PO; +ZOFR4TAB14 PO; -ZOFR4TAB3 PO
[2018-06-27] MEDS ORDERED: ONDANSETRON 4MG/2ML VIAL (J2405) IV ONE (23:30)
[2018-06-27] MEDS ORDERED: KETOROLAC 30 MG/ML VIAL (J1885) IV ONE (23:30)
[2018-06-27] MEDS ORDERED: NS 1,000 ML IV ONE (23:30)
[2018-06-28 00:11] LABS: BASO % 0.4 % (0.0-1.0); EOS # 0.2 10^3/uL (0.0-0.50); EOS % 2.8 % (0.0-3.0); HEMATOCRIT 42.1 % (42.0-52.0); HEMOGLOBIN 14.5 g/dl (13.5-17.5); LYMPH # 1.3 10^3/uL (1.5-4.5); LYMPH % 18.4 % (24.0-44.0); MEAN CORPUSCULAR HEMOGLOBIN 31.4 pg (27.0-33.0); MEAN CORPUSCULAR HGB CONC 34.4 g/dl (32.0-36.5); MEAN CORPUSCULAR VOLUME 91.1 fl (80.0-96.0); MONO # 0.7 10^3/uL (0.0-0.8); MONO % 9.5 % (0.0-5.0); NEUTROPHILS # 4.9 10^3/uL (1.8-7.7); NEUTROPHILS % 68.6 % (36.0-66.0); PLATELET COUNT, AUTOMATED 195 10^3/uL (150-450); RED BLOOD COUNT 4.62 10^6/uL (4.30-6.10); WHITE BLOOD COUNT 7.1 10^3/uL (4.0-10.0)
[2018-06-28 00:40] LABS: ALBUMIN 3.8 GM/DL (3.2-5.2); BILIRUBIN,DIRECT 0.1 MG/DL (0.0-0.2); BILIRUBIN,TOTAL 0.3 MG/DL (0.2-1.0); CALCIUM LEVEL 9.1 MG/DL (8.5-10.1); CREATININE FOR GFR 1.41 MG/DL (0.70-1.30); GLOMERULAR FILTRATION RATE 56.2 (>56); POTASSIUM SERUM 3.9 MEQ/L (3.5-5.1); TOTAL PROTEIN 7.1 GM/DL (6.4-8.2)
--- NOTE | 2018-06-28 01:34 | REPVR ---
EXAM: CT Abdomen and Pelvis Without Contrast EXAM DATE/TIME: 06/27/2018 11:30 PM CLINICAL HISTORY: 53 years old, male; Pain; Abdominal pain; Flank; Right; Additional info: Right flank pain TECHNIQUE: Axial computed tomography images of the abdomen and pelvis without contrast. All CT scans at this facility use at least one of these dose optimization techniques: automated exposure control; mA and/or kV adjustment per patient size (includes targeted exams where dose is matched to clinical indication); or iterative reconstruction. Coronal and sagittal reformatted images were created and reviewed. COMPARISON: CT ABD PELVIS W/O CONTRAST 11/20/2017 6:30 AM FINDINGS: Lower thorax: No acute findings. ABDOMEN: Liver: Normal. No mass. Gallbladder and bile ducts: Contracted gallbladder. Pancreas: Normal. No ductal dilation. Spleen: Normal. No splenomegaly. Adrenals: Normal. No mass. Kidneys and ureters: Mild to moderate right-sided hydroureteronephrosis with perinephric and periureteric stranding secondary to an obstructing stone in the mid right ureter in the abdomen adjacent to the psoas muscle measuring 4.5 mm. Bilateral nonobstructing renal stones are seen. These are measuring up to 3 mm. Stomach and bowel: Mild diverticulosis without CT evidence of diverticulitis. Appendix: Normal appendix. PELVIS: Bladder: Urinary bladder is not well distended and what appears to be thickened and irregular. Cystitis should be ruled out clinically. Reproductive: Prostate is prominent with prostatic calcification. ABDOMEN and PELVIS: Intraperitoneal space: Normal. No free air. No significant fluid collection. Bones/joints: No acute fracture. No dislocation. Soft tissues: Small fat containing inguinal hernias. Vasculature: Atherosclerosis. Lymph nodes: Normal. No enlarged lymph nodes. IMPRESSION: Mild to moderate right-sided hydroureteronephrosis with perinephric and periureteric stranding secondary to an obstructing stone in the mid right ureter in the abdomen adjacent to the psoas muscle measuring 4.5 mm. Bilateral nonobstructing renal stones are seen. These are measuring up to 3 mm. Electronically signed by: Priscila Smith On 06/28/2018 01:34:15 AM
[2018-06-28] MEDS ORDERED: PERC5TAB12 PO (01:50)
[2018-06-28] MEDS ORDERED: CIPR-249 PO (01:50)
[2018-06-28] MEDS ORDERED: FLOM0.4C39 PO (01:50)
[2018-06-28] MEDS ORDERED: CIPROFLOXACIN 500 MG TAB PO ONE (02:00)
[2018-06-28] MEDS ORDERED: OXYCODONE/APAP 5MG/325MG(BULK FOR ED) 1 TABLET PO ONE (02:00)
== END 2018-06-28 02:00 | disposition home or self-care (01) ==
LOC: M ED 23:08
DX: N10 Acute pyelonephritis (principal); N20.1 Calculus of ureter; N39.0 Urinary tract infection, site not specified; I10 Essential (primary) hypertension; E78.5 Hyperlipidemia, unspecified; Z87.442 Personal history of urinary calculi; K21.9 Gastro-esophageal reflux disease without esophagitis; Z95.5 Presence of coronary angioplasty implant and graft; Z72.0 Tobacco use; Z79.82 Long term (current) use of aspirin; Z79.899 Other long term (current) drug therapy
CPT/HCPCS: 36415; 74176; 80048; 80076; 81001; 85025; 87086; 96374; 96375; 99284; J1885; J2405

== ENCOUNTER → 2018-07-11 | Outpatient (CLI) | payer OTHER ==
[~2018-07-11] MED LIST changes: +CIPR-249 PO
--- NOTE | 2018-07-12 01:37 | REP ---
Clinical: Nephrolithiasis. Technique: Two supine views of the abdomen and pelvis. Findings: 2 - 3 mm intrarenal calculi are suspected bilaterally. Calcifications in the pelvis are nonspecific and may reflect phleboliths although distal ureteral calculi cannot be excluded. Bowel gas pattern is nonspecific. No obvious organomegaly. No mass or mass effect. Skeletal structures are intact. Impression: Small bilateral intrarenal calculi suggested. Electronically Signed by Morgan Meehan MD 07/12/2018 01:28 A
== END ==
LOC: M SMT 15:10
PROVIDERS: ATTEND Nurse Practitioner Family
DX: N20.0 Calculus of kidney (principal)

== ENCOUNTER → 2018-07-11 | Outpatient (REF) | payer OTHER ==
[2018-07-11 18:36] LABS: APPEARANCE, URINE CLEAR (CLEAR); BACTERIA, URINE AUTO NEGATIVE (NEGATIVE); BILIRUBIN, URINE AUTO NEGATIVE (NEGATIVE); BLOOD, URINE BLOOD NEGATIVE (NEGATIVE); COLOR, URINE YELLOW (YELLOW); GLUCOSE, URINE (UA) AUTO NEGATIVE (NEGATIVE); KETONE, URINE AUTO NEGATIVE (NEGATIVE); LEUKOCYTE ESTERASE, URINE AUTO NEGATIVE (NEGATIVE); MUCUS, URINE SMALL (NEGATIVE); NITRITE, URINE AUTO NEGATIVE (NEGATIVE); PROTEIN, URINE AUTO NEGATIVE (NEGATIVE); RBC, URINE AUTO 0 /HPF (0-3); SPECIFIC GRAVITY URINE AUTO 1.018 (1.002-1.035); SQUAMOUS EPITHELIAL CELL UR AU 0 /HPF (0-6); UROBILINOGEN, URINE AUTO 0.2 mg/dL (0.0-2.0); WBC, URINE AUTO 1 /HPF (0-3)
== END ==
LOC: M SMT 17:19
PROVIDERS: ATTEND Nurse Practitioner Family
DX: N20.0 Calculus of kidney (principal); N32.89 Other specified disorders of bladder

== ENCOUNTER 2018-08-30 02:33 | Emergency (ER) | payer OTHER ==
[~2018-08-30] VITALS: Ht 180.3 cm; Wt 97.7 kg
[2018-08-30 02:33] VITALS: BP 156/75
[2018-08-30] MEDS ORDERED: IBUP-1022 PO (02:51)
[2018-08-30] MEDS ORDERED: DOXY100C37 PO (03:05)
== END 2018-08-30 03:13 | disposition left against medical advice (07) ==
LOC: M ED 02:33
DX: K08.9 Disorder of teeth and supporting structures, unspecified (principal); K05.6 Periodontal disease, unspecified; I10 Essential (primary) hypertension; E78.00 Pure hypercholesterolemia, unspecified; K21.9 Gastro-esophageal reflux disease without esophagitis; Z87.891 Personal history of nicotine dependence; Z79.01 Long term (current) use of anticoagulants; Z79.899 Other long term (current) drug therapy; Z79.82 Long term (current) use of aspirin

== ENCOUNTER → 2018-10-25 | Outpatient (REF) | payer OTHER ==
[~2018-10-25] MED LIST changes: -ASPI81CH32 PO; +ASPI81CH33 PO; +DOXY100C37 PO; +IBUP-1022 PO
[2018-10-25 17:21] LABS: APPEARANCE, URINE CLEAR (CLEAR); BACTERIA, URINE AUTO NEGATIVE (NEGATIVE); BILIRUBIN, URINE AUTO NEGATIVE (NEGATIVE); BLOOD, URINE BLOOD NEGATIVE (NEGATIVE); COLOR, URINE YELLOW (YELLOW); GLUCOSE, URINE (UA) AUTO NEGATIVE (NEGATIVE); KETONE, URINE AUTO NEGATIVE (NEGATIVE); LEUKOCYTE ESTERASE, URINE AUTO NEGATIVE (NEGATIVE); NITRITE, URINE AUTO NEGATIVE (NEGATIVE); PROTEIN, URINE AUTO NEGATIVE (NEGATIVE); RBC, URINE AUTO 0 /HPF (0-3); SPECIFIC GRAVITY URINE AUTO 1.019 (1.002-1.035); SQUAMOUS EPITHELIAL CELL UR AU 0 /HPF (0-6); UROBILINOGEN, URINE AUTO 0.2 mg/dL (0.0-2.0); WBC, URINE AUTO 0 /HPF (0-3)
== END ==
LOC: M SMT 16:59
PROVIDERS: ATTEND Nurse Practitioner Family
DX: N20.0 Calculus of kidney (principal)

== ENCOUNTER → 2018-11-04 | Outpatient (CLI) | payer OTHER ==
--- NOTE | 2018-11-05 04:26 | REP ---
Clinical: Nephrolithiasis. Technique: Real time puga scale ultrasound examination using curved array transducer. Findings: The bilateral kidneys are normal in contour, size, parenchymal echogenicity and reniform shape without hydronephrosis. Right kidney measures 11.8 x 6.6 x 6.1 cm with sub centimeter cortical mid pole cyst and small scattered echogenic foci suggesting punctate nephroliths versus renovascular calcifications. Left kidney measures 12.0 x 6.1 x 5.0 cm and includes multiple echogenic foci suggesting punctate nonobstructing nephroliths versus renovascular calcifications including possible cluster versus 9 mm calculus in the upper pole. Bladder is incompletely distended but grossly normal as visualized. Impression: 1. Small bilateral nonobstructing intrarenal calculi versus renovascular calcifications. No hydronephrosis. 2. Small simple right renal cyst. Electronically Signed by Morgan Meehan MD 11/05/2018 04:17 A
== END ==
LOC: M RAD 12:32
PROVIDERS: ATTEND Nurse Practitioner Family
DX: N20.0 Calculus of kidney (principal); N28.1 Cyst of kidney, acquired

== ENCOUNTER → 2018-11-22 | Outpatient (CLI) | payer OTHER ==
--- NOTE | 2018-11-22 16:33 | REP ---
Clinical: Left-sided flank pain. Technique: Axial noncontrast images from the lung bases to the pubic symphysis with coronal and sagittal re-formations. Comparison: 06/27/2018. Findings: Bilateral perinephric stranding is appreciated along with small intrarenal calculi measuring up to 2 mm in the right kidney and 3 mm in left kidney without hydroureternephrosis or obstructing ureteral calculi. Differential diagnosis may include chronic changes as well as pyelonephritis and correlation with urinalysis is recommended. Liver, spleen, pancreas, gallbladder, and bilateral adrenal glands are normal. The enteric system is without obstruction or acute inflammatory process. Normal terminal ileum and appendix are identified in the right lower quadrant. Scattered colonic diverticula noted without acute diverticulitis. Pelvis demonstrates normal bladder and age appropriate prostate/seminal vesicles. Small early fat containing inguinal hernia suggested. No ascites. No free air. No adenopathy. Atherosclerotic changes of the aorta noted without aneurysm. Musculoskeletal structures without focal osseous abnormality. Impression: 1. Bilateral perinephric stranding and nonobstructing intrarenal calculi without hydroureternephrosis or obstructing calculus. Differential diagnosis may include chronic changes as well as pyelonephritis and correlation with urinalysis is recommended. 2. Scattered colonic diverticula without acute diverticulitis. 3. No further acute abdominopelvic pathology appreciated. Electronically Signed by Morgan Meehan MD 11/22/2018 04:24 P
== END ==
LOC: M RAD 16:04
PROVIDERS: ATTEND Nurse Practitioner Family
DX: R10.9 Unspecified abdominal pain (principal); N20.0 Calculus of kidney; K57.90 Diverticulosis of intestine, part unspecified, without perforation or abscess without bleeding

== ENCOUNTER 2019-01-06 17:18 | Emergency (ER) | payer OTHER ==
[~2019-01-06] VITALS: Ht 180.3 cm; Wt 102.3 kg
[2019-01-06] MEDS ORDERED: CARV3.12 PO (19:35)
[2019-01-06] MEDS ORDERED: IBUP80TA PO (19:35)
[2019-01-06] MEDS ORDERED: KEFL500C17 PO (20:37)
[2019-01-06 20:43] VITALS: BP 126/70
== END 2019-01-06 20:43 | disposition home or self-care (01) ==
LOC: M ED 17:18
DX: L02.213 Cutaneous abscess of chest wall (principal); I10 Essential (primary) hypertension; E78.00 Pure hypercholesterolemia, unspecified; K21.9 Gastro-esophageal reflux disease without esophagitis; G47.30 Sleep apnea, unspecified; Z79.899 Other long term (current) drug therapy; Z79.82 Long term (current) use of aspirin

== ENCOUNTER → 2019-04-23 | Outpatient (REF) | payer OTHER ==
[~2019-04-23] MED LIST changes: +CARV3.12 PO; +KEFL500C17 PO; +LISI20TA20 PO; -LISI20TA3 PO; -OMEP40CA2 PO; +OMEP40CA97 PO
[2019-04-23 13:00] LABS: BASO % 0.6 % (0.0-1.0); EOS # 0.3 10^3/uL (0.0-0.5); EOS % 5.6 % (0.0-3.0); HEMATOCRIT 40.6 % (42.0-52.0); HEMOGLOBIN 13.2 g/dl (13.5-17.5); LYMPH # 1.5 10^3/uL (1.5-5.0); LYMPH % 30.6 % (24.0-44.0); MEAN CORPUSCULAR HEMOGLOBIN 29.7 pg (27.0-33.0); MEAN CORPUSCULAR HGB CONC 32.5 g/dl (32.0-36.5); MEAN CORPUSCULAR VOLUME 91.4 fl (80.0-96.0); MONO # 0.5 10^3/uL (0.0-0.8); NEUTROPHILS # 2.6 10^3/uL (1.5-8.5); NEUTROPHILS % 52.8 % (36.0-66.0); PLATELET COUNT, AUTOMATED 175 10^3/uL (150-450); RED BLOOD COUNT 4.44 10^6/uL (4.30-6.10)
[2019-04-23 13:13] LABS: ALBUMIN 3.6 GM/DL (3.2-5.2); ALT/SGPT 37 U/L (12-78); BILIRUBIN,TOTAL 0.3 MG/DL (0.2-1.0); BLOOD UREA NITROGEN 13 MG/DL (7-18); CALCIUM LEVEL 8.8 MG/DL (8.5-10.1); CARBON DIOXIDE LEVEL 28 MEQ/L (21-32); CHLORIDE LEVEL 108 MEQ/L (98-107); CHOLESTEROL LEVEL 111 MG/DL (<200); CHOLESTEROL RISK RATIO 2.921 (<5); FREE T4 0.97 NG/DL (0.76-1.46); GLOMERULAR FILTRATION RATE > 60.0 (>56); GLUCOSE, FASTING 147 MG/DL (70-100); HDL CHOLESTEROL 38 MG/DL (>40); LDL CHOLESTEROL 54 MG/DL (<100); NON-HDL-C 73 MG/DL; SODIUM LEVEL 142 MEQ/L (136-145); TOTAL 25(OH) VITAMIN D 20.5 NG/ML (30.0-100.0); TOTAL PROTEIN 6.4 GM/DL (6.4-8.2); TRIGLYCERIDES LEVEL 94 MG/DL (<150)
[2019-04-23 13:19] LABS: HEMOGLOBIN A1c 5.9 %
[2019-04-25 00:08] LABS: Lyme Disease IgG/IgM Antibodie <0.91 ISR (0.00-0.90); Lyme Disease IgM Ab Quantitati <0.80 index (0.00-0.79)
== END ==
LOC: M LAB REF 12:32
PROVIDERS: ATTEND Family Medicine
DX: Z13.228 Encounter for screening for other metabolic disorders (principal); Z12.5 Encounter for screening for malignant neoplasm of prostate

== ENCOUNTER 2019-05-29 10:14 | Emergency (ER) | payer OTHER ==
[~2019-05-29] VITALS: Ht 180.3 cm; Wt 113.4 kg
[~2019-05-29 10:14] MED LIST changes: +D 101000 PO; +ISOS30TA4 PO
[2019-05-29 11:53] LABS: BASO % 0.8 % (0.0-1.0); EOS # 0.3 10^3/uL (0.0-0.5); EOS % 5.1 % (0.0-3.0); HEMATOCRIT 42.1 % (42.0-52.0); HEMOGLOBIN 13.8 g/dl (13.5-17.5); LYMPH # 1.5 10^3/uL (1.5-5.0); LYMPH % 29.6 % (24.0-44.0); MEAN CORPUSCULAR HEMOGLOBIN 29.5 pg (27.0-33.0); MEAN CORPUSCULAR HGB CONC 32.8 g/dl (32.0-36.5); MONO # 0.5 10^3/uL (0.0-0.8); MONO % 9.5 % (0.0-5.0); NEUTROPHILS # 2.7 10^3/uL (1.5-8.5); NEUTROPHILS % 54.8 % (36.0-66.0); PLATELET COUNT, AUTOMATED 183 10^3/uL (150-450); RED BLOOD COUNT 4.68 10^6/uL (4.30-6.10); WHITE BLOOD COUNT 4.9 10^3/uL (4.0-10.0)
[2019-05-29 12:13] LABS: ALBUMIN 3.6 GM/DL (3.2-5.2); ALT/SGPT 47 U/L (12-78); BILIRUBIN,DIRECT 0.2 MG/DL (0.0-0.2); BILIRUBIN,TOTAL 0.4 MG/DL (0.2-1.0); BLOOD UREA NITROGEN 13 MG/DL (7-18); CALCIUM LEVEL 9.6 MG/DL (8.5-10.1); CARBON DIOXIDE LEVEL 26 MEQ/L (21-32); CHLORIDE LEVEL 108 MEQ/L (98-107); CREATININE FOR GFR 1.07 MG/DL (0.70-1.30); GLOMERULAR FILTRATION RATE > 60.0 (>56); GLUCOSE, FASTING 111 MG/DL (70-100); LIPASE 220 U/L (73-393); POTASSIUM SERUM 4.2 MEQ/L (3.5-5.1); SODIUM LEVEL 143 MEQ/L (136-145); TOTAL PROTEIN 6.8 GM/DL (6.4-8.2)
[2019-05-29] MEDS ORDERED: ISOVUE-370 76% 100ML VIAL (Q9967) As Ordered ONE (12:30)
--- NOTE | 2019-05-29 13:00 | REP ---
Clinical: Right lower quadrant pain. Technique: Axial contrast enhanced images from the lung bases to the pubic symphysis using 100 ml Isovue 370 intravenous contrast material with coronal and sagittal re-formations. Comparison: 11/22/2018. Findings: Liver, spleen, pancreas, and bilateral adrenal glands are normal. Collapsed gallbladder with few gallstones noted and no evidence for acute cholecystitis. Kidneys demonstrate mild symmetric perinephric stranding along with few bilateral nonobstructing renal calculi and small renal cysts. No hydronephrosis. Evaluation of the enteric system is without obstruction or acute inflammatory process. Normal terminal ileum and appendix are identified in the right lower quadrant. Few sigmoid diverticula noted without acute diverticulitis. Pelvis demonstrates normal bladder and mildly prominent prostate gland. No ascites. No free air. No adenopathy. Abdominal aorta without aneurysm or dissection. Musculoskeletal structures without focal acute abnormality. Impression: 1. No obvious acute abdominopelvic pathology appreciated. 2. Normal right lower quadrant structures including normal appendix. 3. Cholelithiasis. Bilateral nephrolithiasis. Electronically Signed by Morgan Meehan MD 05/29/2019 12:51 P
[2019-05-29] MEDS ORDERED: IMIQ5CRE TOP (14:11)
[2019-05-29 14:23] VITALS: BP 138/90
== END 2019-05-29 14:25 | disposition home or self-care (01) ==
LOC: M ED 10:14
DX: K80.20 Calculus of gallbladder without cholecystitis without obstruction (principal); N20.0 Calculus of kidney; R79.89 Other specified abnormal findings of blood chemistry; I10 Essential (primary) hypertension; E78.5 Hyperlipidemia, unspecified; K21.9 Gastro-esophageal reflux disease without esophagitis; Z95.5 Presence of coronary angioplasty implant and graft; Z79.899 Other long term (current) drug therapy; Z79.82 Long term (current) use of aspirin; Z87.891 Personal history of nicotine dependence
CPT/HCPCS: 36415; 74177; 80048; 80076; 81001; 83690; 85025; 99284; Q9967

== ENCOUNTER → 2019-06-20 | Outpatient (CLI) | payer OTHER ==
[~2019-06-20] MED LIST changes: +IMIQ5CRE TOP
--- NOTE | 2019-06-20 18:06 | REP ---
Clinical: Pain. Technique: AP and lateral views of the right and left hand. Findings: Osseous structures, joint spaces, and surrounding soft tissues are symmetric and normal for age. No acute fracture dislocation. No overt arthritic changes. Impression: Age-appropriate bilateral hand radiographs. Electronically Signed by Morgan Meehan MD 06/20/2019 05:57 P
[2019-06-20 18:36] LABS: COMPLEMENT C3 142 MG/DL (90-180); COMPLEMENT C4 38 MG/DL (10-40); RHEUMATOID FACTOR QUANT < 10.0 IU/ML (<15.0); URIC ACID 4.1 MG/DL (3.5-7.2)
== END ==
LOC: M LAB 16:50
PROVIDERS: ATTEND Family Medicine
DX: M25.50 Pain in unspecified joint (principal)

== ENCOUNTER 2019-06-29 00:37 | Inpatient (IN) | payer BC ==
[~2019-06-29] VITALS: Ht 180.3 cm; Wt 115.9 kg
[~2019-06-29 00:37] MED LIST changes: +CLOP75TA2
[2019-06-29 01:51] LABS: BASO % 0.6 % (0.0-1.0); EOS # 0.1 10^3/uL (0.0-0.5); EOS % 2.7 % (0.0-3.0); HEMATOCRIT 40.4 % (42.0-52.0); LYMPH # 1.3 10^3/uL (1.5-5.0); LYMPH % 24.1 % (24.0-44.0); MEAN CORPUSCULAR HEMOGLOBIN 28.6 pg (27.0-33.0); MEAN CORPUSCULAR HGB CONC 32.2 g/dl (32.0-36.5); MEAN CORPUSCULAR VOLUME 88.8 fl (80.0-96.0); MONO # 0.6 10^3/uL (0.0-0.8); MONO % 10.5 % (0.0-5.0); NEUTROPHILS # 3.2 10^3/uL (1.5-8.5); NEUTROPHILS % 61.7 % (36.0-66.0); PLATELET COUNT, AUTOMATED 162 10^3/uL (150-450); RED BLOOD COUNT 4.55 10^6/uL (4.30-6.10); WHITE BLOOD COUNT 5.2 10^3/uL (4.0-10.0)
[2019-06-29] MEDS ORDERED: ONDANSETRON 4MG/2ML VIAL (J2405) As Ordered ONE (01:51)
[2019-06-29] MEDS ORDERED: MORPHINE 10 MG/ML 1ML VIAL (J2270) As Ordered ONE (01:52)
[2019-06-29] MEDS ORDERED: NS 1,000 ML IV ONE ×2 (02:00→09:30)
[2019-06-29] MEDS ORDERED: MORPHINE 10 MG/ML 1ML VIAL (J2270) IV ONE (02:00)
[2019-06-29] MEDS ORDERED: ONDANSETRON 4MG/2ML VIAL (J2405) IV ONE (02:00)
[2019-06-29 02:26] LABS: ALBUMIN 3.4 GM/DL (3.2-5.2); ALT/SGPT 236 U/L (12-78); BILIRUBIN,DIRECT 1.2 MG/DL (0.0-0.2); BILIRUBIN,TOTAL 1.6 MG/DL (0.2-1.0); BLOOD UREA NITROGEN 15 MG/DL (7-18); CALCIUM LEVEL 8.9 MG/DL (8.5-10.1); CARBON DIOXIDE LEVEL 26 MEQ/L (21-32); CHLORIDE LEVEL 108 MEQ/L (98-107); CPK CREATINE PHOSPHOKINASE 188 U/L (39-308); CREATININE FOR GFR 0.99 MG/DL (0.70-1.30); GLOMERULAR FILTRATION RATE > 60.0 (>56); GLUCOSE, FASTING 97 MG/DL (70-100); LIPASE 354 U/L (73-393); MB/CK RELATIVE INDEX 0.53 (< OR =4); POTASSIUM SERUM 4.1 MEQ/L (3.5-5.1); SODIUM LEVEL 140 MEQ/L (136-145); TOTAL PROTEIN 6.7 GM/DL (6.4-8.2); TROPONIN I < 0.02 NG/ML (< 0.10)
--- NOTE | 2019-06-29 03:24 | REPVR ---
PROCEDURE INFORMATION: Exam: US Abdomen Limited, Right Upper Quadrant Exam date and time: 06/29/2019 3:09 AM Age: 54 years old Clinical indication: Abdominal pain; Epigastric; Additional info: Biliary eval TECHNIQUE: Imaging protocol: Real-time ultrasound of the abdomen with image documentation. Examination was focused on the right upper quadrant. COMPARISON: US Abdomen 06/28/2019 7:56 PM FINDINGS: Liver: The liver demonstrates no focal defects. Gallbladder: The gallbladder demonstrates internal echogenic structures suggesting sludge and possible stones. There is a small echogenic structure adjacent to the anterior wall suggesting a small polyp. There is a negative sono Alvares's sign. There is no wall thickening measuring 3 mm. Common bile duct: The CBD measures 4 mm. Pancreas: The pancreas is not seen due to gas shadowing. Right kidney: The right kidney is normal measuring 12.0 cm with no hydronephrosis. There is a small right renal cyst measuring 12 x 9 x 15 mm. IMPRESSION: 1. There has been little change from 06/28/2019. 2. Gallbladder sludge and possible stones with probable small polyp. No wall thickening and the sono Alvares's sign remains negative. Electronically signed by: Dayton Snyder On 06/29/2019 03:24:07 AM
--- NOTE | 2019-06-29 06:05 | ECGEPIP ---
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
--- NOTE | 2019-06-29 07:15 | REPVR ---
PROCEDURE INFORMATION: Exam: MR Abdomen Without Contrast, MRCP. Exam date and time: 06/29/2019 4:04 AM Age: 54 years old Clinical indication: Abdominal pain; Acute; Patient HX: mrcp evaluate for stones, CT and u/s on pacs; Additional Info: eval for choledocholithiasis TECHNIQUE: Imaging protocol: MR of the abdomen without contrast. 3D rendering: MIP and/or 3D reconstructed images were created by the technologist. COMPARISON: RENAL US 11/04/2018 12:43 PM FINDINGS: Limitations: Limited without T1 weighted images. Liver: T2 hyperintense lesion in segment 4A of the liver measuring 6 mm. Consistent with cysts. T2 hyperintense lesion in segment 2 of the liver measuring 13 mm. Circumscribed T2 hyperintense lesion in segment segment 8 of the liver measuring 7 mm. Gallbladder and bile ducts: Gallbladder is partially collapse. Gallbladder wall measures up to 6 mm thick. CBD measures 5 mm. Pancreas: Unremarkable. No ductal dilation. Kidneys and ureters: T2 hyperintense lesion in the posterior midpole of the right kidney measuring 9 mm. No hydronephrosis bilaterally. Nonspecific mild perinephric stranding bilaterally. Intraperitoneal space: No fluid collection. IMPRESSION: 1. Limited MR evaluation. 2. Gallbladder is partially collapsed and thickened. Consider HIDA scan with ejection fraction if chronic gallbladder disease is suspected. 3. T2 hyperintense lesion in the right kidney. Consistent with known cysts. 4. T2 hyperintense lesion in segment 2 of the liver. Possible hemangioma. Unchanged from prior. 5. T2 hyperintense lesion in segment 8 of the liver. For low risk patients, recommend follow up CT or MRI in 6 months. For average risk patients, recommend multiphasic MRI in 6 months. For high risk patients, recommend multiphasic MRI. COMMENT: Consistent with the [employer]'s Incidental Findings Committee Report (J Am Nasim Radiol 2010): Unless the patient's specific circumstances suggest otherwise, any liver lesion 0.5 cm or less, any cystic kidney lesion less than 1.0 cm, and/or any adrenal lesion 1.0 cm or less not otherwise characterized in this report as possessing suspicious or indeterminate imaging features is/are highly likely to be benign and do not require follow-up imaging or biopsy. Electronically signed by: Brook Mcclendon On 06/29/2019 07:15:18 AM
[2019-06-29 10:03] LABS: ALBUMIN 3.4 GM/DL (3.2-5.2); ALT/SGPT 320 U/L (12-78); BILIRUBIN,TOTAL 1.7 MG/DL (0.2-1.0); BLOOD UREA NITROGEN 14 MG/DL (7-18); CALCIUM LEVEL 8.5 MG/DL (8.5-10.1); CARBON DIOXIDE LEVEL 26 MEQ/L (21-32); CHLORIDE LEVEL 108 MEQ/L (98-107); CREATININE FOR GFR 0.94 MG/DL (0.70-1.30); GLOMERULAR FILTRATION RATE > 60.0 (>56); GLUCOSE, FASTING 87 MG/DL (70-100); POTASSIUM SERUM 4.2 MEQ/L (3.5-5.1); SODIUM LEVEL 141 MEQ/L (136-145); TOTAL PROTEIN 6.3 GM/DL (6.4-8.2)
[2019-06-29] MEDS ORDERED: KETOROLAC 30 MG/ML VIAL (J1885) IV PRN (10:30)
[2019-06-29] MEDS ORDERED: ACETAMINOPHEN TAB 650MG DOSE (2X325MG) PO PRN (10:30)
[2019-06-29] MEDS ORDERED: MORPHINE 2 MG/ML 1ML VIAL (J2270) IV PRN ×2 (10:30)
[2019-06-29] MEDS ORDERED: ONDANSETRON 4MG/2ML VIAL (J2405) IV PRN (10:30)
[2019-06-29] MEDS ORDERED: PIPERACILLIN/TAZOBACTAM SOD 3.375 GM in D5W MINI-BAG PLUS 50 ML IV ONE (10:45)
[2019-06-29] MEDS: NS 1,000 ML IV SCH ×3 (10:48→23:07)
[2019-06-29] MEDS ORDERED: ASPI81TA26 PO (10:50)
[2019-06-29] MEDS ORDERED: ATOR80TA59 PO (10:50)
[2019-06-29] MEDS ORDERED: VITA100066 PO (10:50)
[2019-06-29] MEDS ORDERED: MELA300T PO (10:50)
[2019-06-29] MEDS: PANTOPRAZOLE 40MG INJ (PROTONIX) (C9113) IV SCH (12:16)
[2019-06-29 13:56] VITALS: BP 185/102
[2019-06-29 13:57] VITALS: BP 178/84
[2019-06-29] MEDS: lisinopriL 20 MG TAB PO SCH (14:52)
[2019-06-29] MEDS: CARVedilol 3.125 MG TAB PO SCH ×2 (14:52→20:28)
[2019-06-29] MEDS: PIPERACILLIN/TAZOBACTAM SOD 3.375 GM in D5W MINI-BAG PLUS 50 ML IV SCH ×2 (17:30→23:06)
[2019-06-29 20:42] VITALS: BP 158/82
[2019-06-30 02:00] VITALS: BP 148/80
[2019-06-30] MEDS: PIPERACILLIN/TAZOBACTAM SOD 3.375 GM in D5W MINI-BAG PLUS 50 ML IV SCH ×4 (05:04→23:44)
[2019-06-30 06:51] VITALS: BP 130/86
[2019-06-30 08:14] LABS: HEMATOCRIT 36.8 % (42.0-52.0); HEMOGLOBIN 12.1 g/dl (13.5-17.5); MEAN CORPUSCULAR HEMOGLOBIN 29.4 pg (27.0-33.0); MEAN CORPUSCULAR HGB CONC 32.9 g/dl (32.0-36.5); MEAN CORPUSCULAR VOLUME 89.5 fl (80.0-96.0); PLATELET COUNT, AUTOMATED 158 10^3/uL (150-450); RED BLOOD COUNT 4.11 10^6/uL (4.30-6.10); WHITE BLOOD COUNT 4.4 10^3/uL (4.0-10.0)
[2019-06-30] MEDS: ATORVASTATIN 20 MG TAB PO SCH (08:28)
[2019-06-30] MEDS: PANTOPRAZOLE 40MG INJ (PROTONIX) (C9113) IV SCH (08:28)
[2019-06-30] MEDS: lisinopriL 20 MG TAB PO SCH (08:28)
[2019-06-30] MEDS: CARVedilol 3.125 MG TAB PO SCH ×2 (08:29→20:10)
[2019-06-30 08:48] LABS: ALBUMIN 2.9 GM/DL (3.2-5.2); ALT/SGPT 211 U/L (12-78); BILIRUBIN,TOTAL 0.7 MG/DL (0.2-1.0); BLOOD UREA NITROGEN 10 MG/DL (7-18); CALCIUM LEVEL 8.1 MG/DL (8.5-10.1); CARBON DIOXIDE LEVEL 25 MEQ/L (21-32); CHLORIDE LEVEL 114 MEQ/L (98-107); CREATININE FOR GFR 1.11 MG/DL (0.70-1.30); GLOMERULAR FILTRATION RATE > 60.0 (>56); GLUCOSE, FASTING 86 MG/DL (70-100); LIPASE 660 U/L (73-393); SODIUM LEVEL 144 MEQ/L (136-145); TOTAL PROTEIN 6.2 GM/DL (6.4-8.2)
[2019-06-30 10:00] VITALS: BP 144/80
[2019-06-30] MEDS: NS 1,000 ML IV SCH ×2 (10:20→18:20)
[2019-06-30 14:30] VITALS: BP 149/90
[2019-06-30] MEDS: IBUPROFEN 600 MG TAB PO PRN (14:35)
[2019-06-30 20:09] VITALS: BP 153/90
[2019-07-01] MEDS: IBUPROFEN 600 MG TAB PO PRN (01:09)
[2019-07-01] MEDS: NS 1,000 ML IV SCH ×3 (01:09→20:18)
[2019-07-01] MEDS ORDERED: ALPRAZolam 0.5 MG TAB PO PRN (02:45)
[2019-07-01] MEDS: PIPERACILLIN/TAZOBACTAM SOD 3.375 GM in D5W MINI-BAG PLUS 50 ML IV SCH ×4 (05:08→23:27)
[2019-07-01 06:52] LABS: HEMATOCRIT 36.7 % (42.0-52.0); HEMOGLOBIN 11.7 g/dl (13.5-17.5); MEAN CORPUSCULAR HGB CONC 31.9 g/dl (32.0-36.5); MEAN CORPUSCULAR VOLUME 90.8 fl (80.0-96.0); PLATELET COUNT, AUTOMATED 167 10^3/uL (150-450); RED BLOOD COUNT 4.04 10^6/uL (4.30-6.10); WHITE BLOOD COUNT 4.2 10^3/uL (4.0-10.0)
[2019-07-01 06:54] VITALS: BP 134/62
[2019-07-01 07:24] LABS: ALBUMIN 2.8 GM/DL (3.2-5.2); ALT/SGPT 153 U/L (12-78); BILIRUBIN,TOTAL 0.6 MG/DL (0.2-1.0); BLOOD UREA NITROGEN 8 MG/DL (7-18); CALCIUM LEVEL 8.4 MG/DL (8.5-10.1); CARBON DIOXIDE LEVEL 20 MEQ/L (21-32); CHLORIDE LEVEL 114 MEQ/L (98-107); CREATININE FOR GFR 0.96 MG/DL (0.70-1.30); GLOMERULAR FILTRATION RATE > 60.0 (>56); GLUCOSE, FASTING 86 MG/DL (70-100); LIPASE 157 U/L (73-393); POTASSIUM SERUM 3.9 MEQ/L (3.5-5.1); SODIUM LEVEL 142 MEQ/L (136-145); TOTAL PROTEIN 5.9 GM/DL (6.4-8.2)
[2019-07-01] MEDS: PANTOPRAZOLE 40MG INJ (PROTONIX) (C9113) IV SCH (10:00)
[2019-07-01] MEDS: lisinopriL 20 MG TAB PO SCH (10:00)
[2019-07-01] MEDS: ATORVASTATIN 20 MG TAB PO SCH (10:00)
[2019-07-01] MEDS: CARVedilol 3.125 MG TAB PO SCH ×2 (10:01→20:18)
--- NOTE | 2019-07-01 11:15 | HPE ---
DATE OF ADMISSION: 06/29/2019 BRIEF HISTORY OF PRESENT ILLNESS: The patient was seen in the emergency room on June 28 because of persistent pain and discomfort and progression of pain, was seen on 06/29 for increasing pain and discomfort. When he was seen in the emergency room he was found to have a normal white count, however, his liver function tests showed a elevated bilirubin. A followup liver function test revealed some increasing elevation of the liver function tests and thus an MRCP was obtained. After the MRCP was obtained and showed no evidence of choledocholithiasis with the patient had resolved his abdominal pain and I was asked to admit him for ongoing care and additional recommendations. He has not had any acholic stools. No bilirubinuria. No evidence of nausea, vomiting previously except associated with this episode of cholecystitis/probable common bile duct stone. He does not complain of any fevers or chills. No diarrhea. Presents for additional evaluation. PAST MEDICAL HISTORY: Is significant for history of coronary artery disease, history of kidney stones, history of hypertension, history of gallstones, history of cardiac stent. MEDICATIONS: Include: atorvastatin, aspirin, vitamin D, omeprazole, melatonin, carvedilol and lisinopril. PHYSICAL EXAM: Reveals a 54-year-old male who looks stated age. HEENT is unremarkable. Neck: Supple without adenopathy. Lungs are clear to auscultation without crackles, wheezes or rhonchi. Heart is regular without murmur. Abdomen is softly distended, mildly tender in the epigastric in the right upper quadrant area, but no significant guarding, rebound or peritoneal signs. Extremities: Warm, well-perfused. IMPRESSION AND PLAN: The patient has elevated liver function tests, normal white count, afebrile, suggesting that this is much more likely a common bile duct stone that passed given his asymptomatic nature. We will see how he does overnight. Depending on his improvement if he continues to improve we may proceed with operative intervention while he is hospitalized, otherwise may consider performing as an outpatient. We will keep him nothing by mouth overnight. We will see how he is doing in the morning with followup liver function tests. If his liver function tests are an increased, we will have the agricultural specialist see him for possible ERCP. If they are down, then will start him on a clear liquid diet.
--- NOTE | 2019-07-01 11:18 | IPN ---
DATE: 06/30/2019 The patient has been afebrile overnight and his liver function tests (LFTs) have dropped nicely with his bilirubin down to 0.7 and all of his other LFTs are down nicely except for the alkaline phosphatase which is still slightly elevated. He does not complain of any abdominal pain or tenderness. Has not had any nausea or vomiting overnight, and we do see a slight blip in his lipase today suggesting he probably had a gallstone pancreatitis in addition to this common bile duct stone. We will keep him on clear liquids. We will see how he is doing over the day and then we will recheck him tomorrow. I have discussed with him whether to proceed with operative intervention while he is here or possibly after discharge. He understands would like to proceed with it while we are here. We have discussed the risks as well as benefits associated with operative intervention, those including but not limited to infection, bleeding, damage to surrounding structures including bile ducts, bowel, liver, pancreas and possible need for open operative intervention. He would like to proceed with this tomorrow and we will put one schedule depending his followup labs, etc.
[2019-07-01] MEDS ORDERED: BUPIVACAINE/EPIN 0.25% 30 ML VIAL As Ordered ONE (11:42)
[2019-07-01] MEDS ORDERED: dexameTHASONE 4 MG/ML 1ML VIAL (J1100) As Ordered ONE (12:33)
[2019-07-01] MEDS ORDERED: ROCURONIUM BROMIDE 50 MG/5 ML VIAL As Ordered ONE ×2 (12:33→13:58)
[2019-07-01] MEDS ORDERED: ONDANSETRON 4MG/2ML VIAL (J2405) As Ordered ONE (12:33)
[2019-07-01] MEDS ORDERED: LIDOCAINE 2% INJ 100 MG/5 ML SDV (FOR ANES.) As Ordered ONE (12:33)
[2019-07-01] MEDS ORDERED: propofoL 200 MG/20 ML VIAL As Ordered ONE (12:33)
[2019-07-01] MEDS ORDERED: MIDAZOLAM INJ 2 MG/2 ML VIAL (J2250) As Ordered ONE (12:34)
[2019-07-01] MEDS ORDERED: fentaNYL 100 MCG/2 ML INJECTION (J3010) As Ordered ONE ×3 (12:34→15:32)
[2019-07-01] MEDS ORDERED: VASOPRESSIN INJ 20 UNITS/ML VIAL As Ordered ONE (13:30)
[2019-07-01] MEDS ORDERED: PHENYLEPHRINE INJ 10MG/ML VIAL (J2370) As Ordered ONE (13:50)
[2019-07-01] MEDS ORDERED: SUGAMMADEX SODIUM 500 MG/5 ML VIAL (BRIDION) As Ordered ONE (13:50)
[2019-07-01] MEDS ORDERED: PHENYLephrine HCL 500 MCG/5 ML (100MCG/ML) SYRINGE (J2370) As Ordered ONE (13:50)
[2019-07-01] MEDS ORDERED: NORCO, ANEXSIA 5/325MG TABLET (HYDROcodone/ACETAMINOPHEN) PO PRN (15:00)
[2019-07-01] MEDS ORDERED: LR 1,000 ML IV SCH (15:30)
[2019-07-01] MEDS ORDERED: MEPERIDINE INJ 25 MG/ML VIAL (J2175) IV PRN (15:30)
[2019-07-01] MEDS ORDERED: METOCLOPRAMIDE INJ 10MG/2ML VIAL (J2765) IV PRN (15:30)
[2019-07-01] MEDS ORDERED: ONDANSETRON 4MG/2ML VIAL (J2405) IV PRN (15:30)
[2019-07-01] MEDS ORDERED: PERCOCET 5MG/325MG TAB As Ordered ONE ×2 (15:32→16:08)
[2019-07-01] MEDS: fentaNYL 100 MCG/2 ML INJECTION (J3010) IV PRN ×2 (15:34→15:39)
[2019-07-01] MEDS: PERCOCET 5MG/325MG TAB PO PRN ×2 (15:34→16:07)
[2019-07-01 16:21] VITALS: BP 149/89
[2019-07-01 17:15] VITALS: BP 146/85
[2019-07-01 19:00] VITALS: BP 147/74
[2019-07-01 20:00] VITALS: BP 148/89
[2019-07-01] MEDS: NORCO, ANEXSIA 5/325MG TABLET (HYDROcodone/ACETAMINOPHEN) PO PRN (20:51)
[2019-07-01 21:00] VITALS: BP 148/85; O2SAT 97
[2019-07-02] MEDS: NORCO, ANEXSIA 5/325MG TABLET (HYDROcodone/ACETAMINOPHEN) PO PRN ×2 (01:38→10:21)
[2019-07-02] MEDS: NS 1,000 ML IV SCH ×2 (01:39→10:20)
[2019-07-02 02:00] VITALS: BP 138/86
[2019-07-02] MEDS: PIPERACILLIN/TAZOBACTAM SOD 3.375 GM in D5W MINI-BAG PLUS 50 ML IV SCH (04:51)
[2019-07-02 06:00] VITALS: BP 127/83
[2019-07-02 06:46] LABS: HEMATOCRIT 33.8 % (42.0-52.0); HEMOGLOBIN 11.2 g/dl (13.5-17.5); MEAN CORPUSCULAR HEMOGLOBIN 29.4 pg (27.0-33.0); MEAN CORPUSCULAR HGB CONC 33.1 g/dl (32.0-36.5); MEAN CORPUSCULAR VOLUME 88.7 fl (80.0-96.0); PLATELET COUNT, AUTOMATED 172 10^3/uL (150-450); RED BLOOD COUNT 3.81 10^6/uL (4.30-6.10); WHITE BLOOD COUNT 8.5 10^3/uL (4.0-10.0)
[2019-07-02 07:08] LABS: ALBUMIN 2.6 GM/DL (3.2-5.2); ALT/SGPT 120 U/L (12-78); BILIRUBIN,TOTAL 0.4 MG/DL (0.2-1.0); BLOOD UREA NITROGEN 8 MG/DL (7-18); CALCIUM LEVEL 8.3 MG/DL (8.5-10.1); CARBON DIOXIDE LEVEL 21 MEQ/L (21-32); CHLORIDE LEVEL 114 MEQ/L (98-107); CREATININE FOR GFR 1.06 MG/DL (0.70-1.30); GLOMERULAR FILTRATION RATE > 60.0 (>56); GLUCOSE, FASTING 143 MG/DL (70-100); LIPASE 123 U/L (73-393); SODIUM LEVEL 142 MEQ/L (136-145); TOTAL PROTEIN 5.8 GM/DL (6.4-8.2)
[2019-07-02] MEDS: PANTOPRAZOLE 40MG INJ (PROTONIX) (C9113) IV SCH (08:38)
[2019-07-02] MEDS: ATORVASTATIN 20 MG TAB PO SCH (08:38)
[2019-07-02 08:40] VITALS: BP 130/60
[2019-07-02] MEDS: CARVedilol 3.125 MG TAB PO SCH (08:40)
[2019-07-02] MEDS: lisinopriL 20 MG TAB PO SCH (08:40)
[2019-07-02] MEDS ORDERED: HYDR-4571 PO (09:06)
--- NOTE | 2019-07-21 12:05 | RO ---
DATE OF PROCEDURE: 07/01/2019 PREOPERATIVE DIAGNOSIS: History of choledocholithiasis with cholecystitis. POSTOPERATIVE DIAGNOSIS: History of choledocholithiasis with cholecystitis. PROCEDURE: Laparoscopic cholecystectomy. SURGEON: Dr. Vikas Green PIPE CUTTER: ANESTHESIA: General endotracheal anesthesia. ESTIMATED BLOOD LOSS: Minimal. FLUIDS: Crystalloid. BRIEF PROCEDURE SUMMARY: The patient was brought to the operating room and was given general anesthesia. After adequate anesthesia and preoperative antibiotics were given, the patient was prepped and draped in the usual sterile fashion. Next, a supraumbilical incision was made with skin knife. Blunt dissection was carried down to fascia. The fascia was entered with Veress needle and insufflated to 15 mm of pressure. A dilating 10 mm trocar was placed and under direct visualization an epigastric and two lateral trocars were placed. Next, the gallbladder was grasped, retracted superiorly and there was edema throughout the wall of the gallbladder that was appreciated. The peritoneum was dissected off the lateral aspect of the gallbladder wall, across the anterior aspect, down to where the cystic duct and cystic duct node were appreciated. Once a window behind the cystic artery was visualized and from the posterior aspect of the neck of the gallbladder, a good window was created behind the neck of the gallbladder and then further mobilizing the posterior aspect of the gallbladder on the lateral side almost all the way to the medial side, the cystic artery and cystic duct was well visualized. The cystic artery was clipped proximally and distally and transected. Then, the gallbladder was lifted up further and we could follow the cystic duct a little bit further distally. This was clipped proximally and distally and transected and the gallbladder was removed from the gallbladder bed using electrocautery and placed in an EndoCatch bag and brought out through the umbilicus. #0 Vicryl was used close the fascia at the umbilicus and all incisions were closed with #4-0 Vicryl. Steri-Strips and a dry sterile dressing was applied. The patient was awakened, extubated and brought to recovery room awake, alert and hemodynamically stable. Sponge and needle counts correct times two.
--- NOTE | 2019-07-21 12:17 | DSES ---
DATE OF ADMISSION: 06/29/2019 DATE OF DISCHARGE: 07/02/2019 PRINCIPAL DIAGNOSIS: Choledocholithiasis and gallstone pancreatitis. ASSOCIATED DIAGNOSES: 1. History of coronary artery disease. 2. History of kidney stones. 3. History of hypertension. 4. History of gallstones. 5. History of cardiac stent. HISTORY OF PRESENT ILLNESS: The patient is a 54-year-old male who presented to the emergency room on 06/28/2019 because of pain and discomfort in the right upper quadrant and was found to have some elevated white count and slightly elevated bilirubin. Followup liver function tests revealed some elevation of the liver function tests. An MRCP was obtained and revealed no evidence of choledocholithiasis. I was asked to admit him for his abdominal pain and probable choledocholithiasis with a past common bile duct stone. HOSPITAL COURSE SUMMARY: The patient was admitted on 06/29/2019. He tolerated clear liquids at this time, but his liver function tests continued to be elevated and then his lipase bumped up to one day, suggesting that the stone had passed right around the day after he was admitted. The following day, his lipase returned to normal, LFTs were decreasing and thus we took him to the operating room where he underwent a laparoscopic cholecystectomy. The patient tolerated this procedure well and was discharged home on the following day with instructions to follow up in 2 weeks, sooner if there is any question, concerns, fevers or chills, but was to continue his usual medications which include aspirin, atorvastatin, carvedilol, vitamin D3, lisinopril, melatonin and omeprazole. He was also given hydrocodone/Vicodin for pain as needed after discharge.
== END 2019-07-02 11:40 | disposition home or self-care (01) | DRG 263 ==
LOC: M ED 00:37 → M ED INP 10:20 → ENRESERV 10:32 → M MS5PR 13:25
PROVIDERS: ADMIT Surgery; ATTEND Surgery
PROC: 0FT44ZZ Resection of Gallbladder, Percutaneous Endoscopic Approach (ICD-10-PCS; principal; 2019-07-01 13:30)
DX: K80.50 Calculus of bile duct without cholangitis or cholecystitis without obstruction (principal); K85.10 Biliary acute pancreatitis without necrosis or infection; I25.10 Atherosclerotic heart disease of native coronary artery without angina pectoris; I10 Essential (primary) hypertension; Z95.5 Presence of coronary angioplasty implant and graft; Z87.442 Personal history of urinary calculi; Z79.82 Long term (current) use of aspirin; Z79.899 Other long term (current) drug therapy

== ENCOUNTER → 2019-07-16 | Outpatient (REF) | payer BC, OTHER ==
[~2019-07-16] MED LIST changes: +ASPI81TA26 PO; +ATOR80TA59 PO; +HYDR-4571 PO; +MELA300T PO; +VITA100066 PO
== END ==
LOC: M LAB REF 17:13
PROVIDERS: ATTEND Dermatology
DX: D49.2 Neoplasm of unspecified behavior of bone, soft tissue, and skin (principal)

== ENCOUNTER → 2019-07-17 | Outpatient (REF) | payer BC ==
[2019-07-17 13:43] LABS: AMORPHOUS SEDIMENT SMALL (NEGATIVE); APPEARANCE, URINE TURBID (CLEAR); BACTERIA, URINE AUTO NEGATIVE (NEGATIVE); BILIRUBIN, URINE AUTO NEGATIVE (NEGATIVE); BLOOD, URINE BLOOD NEGATIVE (NEGATIVE); COLOR, URINE YELLOW (YELLOW); GLUCOSE, URINE (UA) AUTO NEGATIVE (NEGATIVE); KETONE, URINE AUTO NEGATIVE (NEGATIVE); LEUKOCYTE ESTERASE, URINE AUTO NEGATIVE (NEGATIVE); MUCUS, URINE SMALL (NEGATIVE); NITRITE, URINE AUTO NEGATIVE (NEGATIVE); PROTEIN, URINE AUTO NEGATIVE (NEGATIVE); RBC, URINE AUTO 3 /HPF (0-3); SPECIFIC GRAVITY URINE AUTO 1.026 (1.002-1.035); SQUAMOUS EPITHELIAL CELL UR AU 0 /HPF (0-6); UROBILINOGEN, URINE AUTO 0.2 mg/dL (0.0-2.0); WBC, URINE AUTO 0 /HPF (0-3)
== END ==
LOC: M SMT 13:04
PROVIDERS: ATTEND Nurse Practitioner Family
DX: R10.9 Unspecified abdominal pain (principal)

== ENCOUNTER → 2019-07-17 | Outpatient (CLI) | payer BC ==
--- NOTE | 2019-07-18 01:42 | REP ---
Clinical: Right flank pain. Technique: Two supine views of the abdomen and pelvis. Findings: small nonobstructing intrarenal calculi are suggested measuring up to roughly 2 mm. Further evaluation of the urinary tract system is limited due to technique and overlying bowel gas. No bowel obstruction. No organomegaly. Evidence of prior cholecystectomy. Skeletal structures are intact. Vascular calcification/phleboliths noted in the pelvis. Impression: Small intrarenal calculi up to 2 mm suspected. Electronically Signed by Morgan Meehan MD 07/18/2019 01:33 A
== END ==
LOC: M RAD 11:11
PROVIDERS: ATTEND Nurse Practitioner Family
DX: R10.9 Unspecified abdominal pain (principal)

== ENCOUNTER 2019-08-25 02:17 | Emergency (ER) | payer BC ==
[~2019-08-25] VITALS: Ht 180.3 cm; Wt 116.5 kg
[~2019-08-25 02:17] MED LIST changes: +VITAD1000T PO
[2019-08-25] MEDS ORDERED: D-101000 (02:23)
[2019-08-25 03:43] LABS: INFLUENZA A AMPLIFICATION NEGATIVE (NEGATIVE); INFLUENZA B AMPLIFICATION NEGATIVE (NEGATIVE)
[2019-08-25] MEDS ORDERED: AUGMENTIN 875 MG TAB PO ONE (04:00)
[2019-08-25] MEDS ORDERED: AUGM500T34 PO (04:11)
[2019-08-25 04:20] VITALS: BP 134/72
== END 2019-08-25 04:38 | disposition home or self-care (01) ==
LOC: M ED 02:17
DX: J02.9 Acute pharyngitis, unspecified (principal); I11.9 Hypertensive heart disease without heart failure; K21.9 Gastro-esophageal reflux disease without esophagitis; I25.10 Atherosclerotic heart disease of native coronary artery without angina pectoris; Z95.5 Presence of coronary angioplasty implant and graft; Z79.899 Other long term (current) drug therapy; Z79.82 Long term (current) use of aspirin

== ENCOUNTER 2019-09-04 10:04 | Day surgery (SDC) | payer BC ==
[~2019-09-04] VITALS: Ht 180.3 cm; Wt 114.8 kg
[~2019-09-04 10:04] MED LIST changes: +AUGM500T34 PO; +D-101000; +NS 1,000 ML IV ONE
[2019-09-04] MEDS ORDERED: propofoL 200 MG/20 ML VIAL As Ordered ONE (11:03)
[2019-09-04] MEDS ORDERED: LIDOCAINE 2% INJ 100 MG/5 ML SDV (FOR ANES.) As Ordered ONE (11:05)
[2019-09-04] MEDS ORDERED: fentaNYL 100 MCG/2 ML INJECTION (J3010) As Ordered ONE (11:51)
[2019-09-04] MEDS ORDERED: MIDAZOLAM INJ 2 MG/2 ML VIAL (J2250) As Ordered ONE (11:55)
[2019-09-04] MEDS ORDERED: LABETALOL HCL 100 MG/20 ML VIAL As Ordered ONE (12:06)
--- NOTE | 2019-09-04 12:44 | ROOR ---
Patient Name: Cash Ch Procedure Date: 09/04/2019 12:05 PM Date of : 1965 Age: 54 Room: [facility] Gender: Male Note Status: Finalized Procedure: Colonoscopy Indications: Screening for colorectal malignant neoplasm Providers: Mikie SONI MD Referring MD: Mikie SULLIVAN MD Requesting Provider: Medicines: Monitored Anesthesia Care Complications: No immediate complications. Procedure: Pre-Anesthesia Assessment: - The heart rate, respiratory rate, oxygen saturations, blood pressure, adequacy of pulmonary ventilation, and response to care were monitored throughout the procedure. The Colonoscope was introduced through the anus and advanced to the terminal ileum, with identification of the appendiceal orifice and IC valve. The colonoscopy was performed without difficulty. The patient tolerated the procedure well. The quality of the bowel preparation was good. Findings: The perianal and digital rectal examinations were normal. Three sessile polyps were found in the ascending colon. The polyps were 6 to 9 mm in size. These polyps were removed with a cold snare. Resection and retrieval were complete. Three sessile polyps were found in the sigmoid colon. The polyps were 6 to 9 mm in size. These polyps were removed with a cold snare. Resection and retrieval were complete. A 9 mm polyp was found in the rectum. The polyp was semi-pedunculated. The polyp was removed with a hot snare. Resection and retrieval were complete. Mild sigmoid diverticulosis and small internal hemorrhoids. The exam was otherwise without abnormality. Impression: - Three 6 to 9 mm polyps in the ascending colon, removed with a cold snare. Resected and retrieved. - Three 6 to 9 mm polyps in the sigmoid colon, removed with a cold snare. Resected and retrieved. - One 9 mm polyp in the upper rectum (at 10 cm from verge), removed with a hot snare. Resected and retrieved. - Mild sigmoid diverticulosis and small internal hemorrhoids. - The examination was otherwise normal. Recommendation: - Repeat colonoscopy in 3 years for surveillance. - No ibuprofen, naproxen, or other non-steroidal anti-inflammatory drugs for 10 days after polyp removal. - Return to referring physician as previously scheduled. Mikie Soni MD Mikie SONI MD 09/04/2019 12:43:28 PM Electronically signed by Mikie SONI MD Number of Addenda: 0 Note Initiated On: 09/04/2019 12:05 PM Estimated Blood Loss: Estimated blood loss: none.
--- NOTE | 2019-09-04 12:49 | ROOR ---
Patient Name: Cash Ch Procedure Date: 09/04/2019 12:04 PM Date of : 1965 Age: 54 Room: [facility] Gender: Male Note Status: Finalized Procedure: Upper GI endoscopy Indications: Surveillance for malignancy due to personal history of Waters's esophagus, Heartburn Providers: Mikie SONI MD Referring MD: Mikie SULLIVAN MD Requesting Provider: Medicines: Monitored Anesthesia Care Complications: No immediate complications. Procedure: Pre-Anesthesia Assessment: - The heart rate, respiratory rate, oxygen saturations, blood pressure, adequacy of pulmonary ventilation, and response to care were monitored throughout the procedure. The Endoscope was introduced through the mouth, and advanced to the second part of duodenum. The upper GI endoscopy was accomplished without difficulty. The patient tolerated the procedure well. Findings: The examined esophagus was normal. The Z-line was variable and was found 40 cm from the incisors. This was biopsied with a cold forceps for histology. The entire examined stomach was normal. The examined duodenum was normal. Impression: - Normal esophagus. - Z-line variable, 40 cm from the incisors. Biopsied. - Normal stomach. - Normal examined duodenum. Recommendation: - Continue present medications. - Repeat upper endoscopy in 3 years for surveillance. Mikie Soni MD Mikie SONI MD 09/04/2019 12:49:09 PM Electronically signed by Mikie SONI MD Number of Addenda: 0 Note Initiated On: 09/04/2019 12:04 PM Estimated Blood Loss: Estimated blood loss: none.
[2019-09-04 13:10] VITALS: BP 156/82
== END 2019-09-04 13:22 | disposition home or self-care (01) ==
LOC: M OPP 10:04
PROVIDERS: ATTEND Internal Medicine Gastroenterology
DX: Z12.11 Encounter for screening for malignant neoplasm of colon (principal); Z86.010 Personal history of colon polyps; D12.2 Benign neoplasm of ascending colon; D12.5 Benign neoplasm of sigmoid colon; K62.1 Rectal polyp; K57.30 Diverticulosis of large intestine without perforation or abscess without bleeding; K64.8 Other hemorrhoids; Z79.82 Long term (current) use of aspirin; Z79.899 Other long term (current) drug therapy; Z87.891 Personal history of nicotine dependence; Z95.5 Presence of coronary angioplasty implant and graft
CPT/HCPCS: 45385; 88305; J2250; J3010

== ENCOUNTER → 2020-05-05 | Outpatient (REF) | payer BC ==
[~2020-05-05] MED LIST changes: +D31000TA2 PO; -NS 1,000 ML IV ONE; -VITAD1000T PO
[2020-05-05 17:19] LABS: BASO % 0.9 % (0.0-1.0); EOS # 0.2 10^3/uL (0.0-0.5); EOS % 3.2 % (0.0-3.0); HEMATOCRIT 45.1 % (42.0-52.0); HEMOGLOBIN 14.7 g/dl (13.5-17.5); LYMPH # 1.3 10^3/uL (1.5-5.0); LYMPH % 28.1 % (24.0-44.0); MEAN CORPUSCULAR HEMOGLOBIN 30.1 pg (27.0-33.0); MEAN CORPUSCULAR HGB CONC 32.6 g/dl (32.0-36.5); MEAN CORPUSCULAR VOLUME 92.2 fl (80.0-96.0); MONO # 0.4 10^3/uL (0.0-0.8); MONO % 8.4 % (0.0-5.0); NEUTROPHILS # 2.7 10^3/uL (1.5-8.5); NEUTROPHILS % 59.2 % (36.0-66.0); PLATELET COUNT, AUTOMATED 181 10^3/uL (150-450); RED BLOOD COUNT 4.89 10^6/uL (4.30-6.10); WHITE BLOOD COUNT 4.6 10^3/uL (4.0-10.0)
[2020-05-05 17:22] LABS: ALBUMIN 3.9 GM/DL (3.2-5.2); ALT/SGPT 34 U/L (12-78); BILIRUBIN,TOTAL 0.5 MG/DL (0.2-1.0); BLOOD UREA NITROGEN 17 MG/DL (7-18); CALCIUM LEVEL 9.6 MG/DL (8.5-10.1); CARBON DIOXIDE LEVEL 29 MEQ/L (21-32); CHLORIDE LEVEL 107 MEQ/L (98-107); CHOLESTEROL LEVEL 127 MG/DL (<200); CHOLESTEROL RISK RATIO 3.256 (<5); CREATININE FOR GFR 1.12 MG/DL (0.70-1.30); GLOMERULAR FILTRATION RATE > 60.0 (>56); GLUCOSE, FASTING 108 MG/DL (70-100); HDL CHOLESTEROL 39 MG/DL (>40); LDL CHOLESTEROL 62 MG/DL (<100); NON-HDL-C 88 MG/DL; POTASSIUM SERUM 4.4 MEQ/L (3.5-5.1); SODIUM LEVEL 143 MEQ/L (136-145); TRIGLYCERIDES LEVEL 131 MG/DL (<150)
[2020-05-05 18:57] LABS: HEMOGLOBIN A1c 5.8 %
== END ==
LOC: M LAB REF 16:39
PROVIDERS: ATTEND Physician Assistant
DX: R73.03 Prediabetes (principal); E78.5 Hyperlipidemia, unspecified; I10 Essential (primary) hypertension

== ENCOUNTER → 2020-06-21 | Outpatient (CLI) | payer BC ==
--- NOTE | 2020-06-21 15:19 | REP ---
INDICATION: NICOTINE DEPENDENCE CIGARETTES IN REMISSION COMPARISON: None. TECHNIQUE: Axial noncontrast images from the thoracic inlet to the upper abdomen using low-dose lung screening technique (LDCT). FINDINGS: Bilateral lung bonilla are well aerated and clear. No consolidation, suspicious nodule or mass lesion. No pleural effusion. No pneumothorax. Tracheobronchial tree is patent. IMPRESSION: Lung-RADS category 1. No suspicious nodule or mass lesion. Management recommendations include annual low-dose CT surveillance. <Electronically signed by Morgan Meehan > 06/21/20 [id number]
== END ==
LOC: M RAD 14:44
PROVIDERS: ATTEND Physician Assistant
DX: F17.200 Nicotine dependence, unspecified, uncomplicated (principal)

== ENCOUNTER → 2020-09-30 | Outpatient (CLI) | payer BC ==
[~2020-09-30] MED LIST changes: +ISOS1TAB35 PO; -ISOS30TA4 PO; -LISI-538 PO; +LISI20TA33 PO
[2020-09-30 13:29] LABS: HEMATOCRIT 45.6 % (42.0-52.0); HEMOGLOBIN 15.2 g/dl (13.5-17.5); MEAN CORPUSCULAR HEMOGLOBIN 30.9 pg (27.0-33.0); MEAN CORPUSCULAR HGB CONC 33.3 g/dl (32.0-36.5); MEAN CORPUSCULAR VOLUME 92.7 fl (80.0-96.0); PLATELET COUNT, AUTOMATED 207 10^3/uL (150-450); RED BLOOD COUNT 4.92 10^6/uL (4.30-6.10); WHITE BLOOD COUNT 5.6 10^3/uL (4.0-10.0)
[2020-09-30 13:56] LABS: ALT/SGPT 44 U/L (12-78); BILIRUBIN,TOTAL 0.5 MG/DL (0.2-1.0); BLOOD UREA NITROGEN 20 MG/DL (7-18); CALCIUM LEVEL 9.8 MG/DL (8.5-10.1); CARBON DIOXIDE LEVEL 32 MEQ/L (21-32); CHLORIDE LEVEL 108 MEQ/L (98-107); CREATININE FOR GFR 1.06 MG/DL (0.70-1.30); GLOMERULAR FILTRATION RATE > 60.0 (>56); GLUCOSE, FASTING 126 MG/DL (70-100); POTASSIUM SERUM 4.2 MEQ/L (3.5-5.1); SODIUM LEVEL 143 MEQ/L (136-145)
== END ==
LOC: M LAB 12:20
PROVIDERS: ATTEND Physician Assistant
DX: I25.119 Atherosclerotic heart disease of native coronary artery with unspecified angina pectoris (principal)

== ENCOUNTER → 2020-10-14 | Outpatient (CLI) | payer BC ==
[2020-10-14 12:51] LABS: BASO % 0.7 % (0.0-1.0); EOS # 0.2 10^3/uL (0.0-0.5); EOS % 4.1 % (0.0-3.0); HEMATOCRIT 43.5 % (42.0-52.0); HEMOGLOBIN 14.8 g/dl (13.5-17.5); LYMPH # 1.1 10^3/uL (1.5-5.0); LYMPH % 24.8 % (24.0-44.0); MEAN CORPUSCULAR HEMOGLOBIN 30.9 pg (27.0-33.0); MEAN CORPUSCULAR VOLUME 90.8 fl (80.0-96.0); MONO # 0.4 10^3/uL (0.0-0.8); MONO % 9.7 % (2.0-8.0); NEUTROPHILS # 2.6 10^3/uL (1.5-8.5); NEUTROPHILS % 60.7 % (36.0-66.0); PLATELET COUNT, AUTOMATED 187 10^3/uL (150-450); RED BLOOD COUNT 4.79 10^6/uL (4.30-6.10); WHITE BLOOD COUNT 4.4 10^3/uL (4.0-10.0)
[2020-10-14 13:34] LABS: BLOOD UREA NITROGEN 13 MG/DL (7-18); CALCIUM LEVEL 9.3 MG/DL (8.5-10.1); CARBON DIOXIDE LEVEL 28 MEQ/L (21-32); CHLORIDE LEVEL 106 MEQ/L (98-107); GLOMERULAR FILTRATION RATE > 60.0 (>56); GLUCOSE, FASTING 124 MG/DL (70-100); POTASSIUM SERUM 4.1 MEQ/L (3.5-5.1); SODIUM LEVEL 139 MEQ/L (136-145)
== END ==
LOC: M LAB 11:44
PROVIDERS: ATTEND Internal Medicine Cardiovascular Disease
DX: R94.39 Abnormal result of other cardiovascular function study (principal); R07.9 Chest pain, unspecified

== ENCOUNTER → 2020-10-16 | Outpatient (CLI) | payer BC | LOC: M LABSMTC 11:50 | PROVIDERS: ATTEND Internal Medicine Cardiovascular Disease | DX: Z11.52 Encounter for screening for COVID-19 (principal) ==

== ENCOUNTER → 2020-11-09 | Outpatient (CLI) | payer BC ==
[2020-11-09 17:12] LABS: HEMATOCRIT 42.5 % (42.0-52.0); HEMOGLOBIN 14.3 g/dl (13.5-17.5); MEAN CORPUSCULAR HEMOGLOBIN 30.6 pg (27.0-33.0); MEAN CORPUSCULAR HGB CONC 33.6 g/dl (32.0-36.5); PLATELET COUNT, AUTOMATED 194 10^3/uL (150-450); RED BLOOD COUNT 4.67 10^6/uL (4.30-6.10); WHITE BLOOD COUNT 4.5 10^3/uL (4.0-10.0)
[2020-11-09 17:44] LABS: ALBUMIN 4.1 GM/DL (3.2-5.2); ALT/SGPT 39 U/L (12-78); BILIRUBIN,TOTAL 0.6 MG/DL (0.2-1.0); BLOOD UREA NITROGEN 17 MG/DL (7-18); CALCIUM LEVEL 9.5 MG/DL (8.5-10.1); CARBON DIOXIDE LEVEL 29 MEQ/L (21-32); CHLORIDE LEVEL 109 MEQ/L (98-107); CREATININE FOR GFR 0.98 MG/DL (0.70-1.30); GLOMERULAR FILTRATION RATE > 60.0 (>56); GLUCOSE, FASTING 98 MG/DL (70-100); POTASSIUM SERUM 3.9 MEQ/L (3.5-5.1); SODIUM LEVEL 143 MEQ/L (136-145); TOTAL PROTEIN 6.9 GM/DL (6.4-8.2)
== END ==
LOC: M LAB 15:37
PROVIDERS: ATTEND Physician Assistant
DX: I25.119 Atherosclerotic heart disease of native coronary artery with unspecified angina pectoris (principal)

== ENCOUNTER → 2021-05-25 | Outpatient (CLI) | payer BC ==
[~2021-05-25] MED LIST changes: +DOXY-443 PO; -DOXY100C37 PO; +OMEP40CA4 PO; -OMEP40CA97 PO
--- NOTE | 2021-05-26 04:13 | REP ---
INDICATION: SERG LEG PAIN COMPARISON: None. TECHNIQUE: Real time sal scale and color Doppler evaluation of the bilateral lower extremity arterial vasculature using linear high frequency transducer. FINDINGS: Sal scale and color images demonstrate mild to moderate amounts of atheromatous plaquing with focal stenosis or occlusion identified. Doppler interrogation demonstrates normal triphasic arterial wave forms and velocities bilaterally. Peak systolic velocities (cm/sec) DELONTE: Right 1.09; Left 1.02 Common femoral artery: Right 109; Left 159 Profunda femoris: Right 139; Left 133 SFA (proximal): Right 114; Left 182 SFA (mid): Right 114; Left 101 SFA (distal): Right 100; Left 87 Popliteal artery: Right 81; Left 77 Tibioperoneal trunk: Right 88; Left 57 POTATO PICKER (prox.): Right 52; Left 58 POTATO PICKER (distal): Right 56; Left 58 Peroneal (prox.): Right 45; Left 37 Peroneal (distal): Right 40; Left 42 CRISTI (prox.): Right 80; Left 93 CRISTI (distal): Right 73; Left 73 IMPRESSION: Atheromatous changes without focal occlusion or stenosis. <Electronically signed by Morgan Meehan > 05/26/21 [id number]
== END ==
LOC: M RAD 14:02
PROVIDERS: ATTEND Physician Assistant
DX: I70.90 Unspecified atherosclerosis (principal); M79.605 Pain in left leg; M79.604 Pain in right leg

== ENCOUNTER → 2021-07-21 | Outpatient (CLI) | payer BC, OTHER ==
[~2021-07-21] MED LIST changes: +IMIQ1CRE6 TOP; -IMIQ5CRE TOP; -LISI20TA20 PO; +LISI20TA37 PO
== END ==
LOC: M RAD 13:36
PROVIDERS: ATTEND Physician Assistant
DX: Z87.891 Personal history of nicotine dependence (principal)

== ENCOUNTER → 2022-04-21 | Outpatient (CLI) | payer OTHER ==
[~2022-04-21] MED LIST changes: -D31000TA2 PO; +VITA100093 PO
== END ==
LOC: M PLARAD 15:02
PROVIDERS: ATTEND Physician Assistant
DX: M54.59 Other low back pain (principal)

== ENCOUNTER → 2022-06-08 | Outpatient (CLI) | payer OTHER | LOC: M SOG 08:12 | PROVIDERS: ATTEND Orthopaedic Surgery | DX: M54.50 Low back pain, unspecified (principal) ==

== ENCOUNTER → 2022-06-14 | Outpatient (CLI) | payer OTHER | LOC: M SOG 08:04 | PROVIDERS: ATTEND Orthopaedic Surgery | DX: M25.511 Pain in right shoulder (principal) ==

== ENCOUNTER 2022-08-08 15:13 | Emergency (ER) | payer BC, OTHER ==
[~2022-08-08] VITALS: Ht 180.3 cm; Wt 125.0 kg
[2022-08-08 21:16] LABS: BASO % 0.3 % (0.0-1.0); EOS # 0.1 10^3/uL (0.0-0.5); HEMATOCRIT 39.9 % (42.0-52.0); HEMOGLOBIN 12.9 g/dl (13.5-17.5); LYMPH # 1.2 10^3/uL (1.5-5.0); LYMPH % 20.6 % (24.0-44.0); MEAN CORPUSCULAR HEMOGLOBIN 29.3 pg (27.0-33.0); MEAN CORPUSCULAR HGB CONC 32.3 g/dl (32.0-36.5); MEAN CORPUSCULAR VOLUME 90.7 fl (80.0-96.0); MONO # 0.6 10^3/uL (0.0-0.8); MONO % 9.7 % (2.0-8.0); NEUTROPHILS % 67.1 % (36.0-66.0); PLATELET COUNT, AUTOMATED 177 10^3/uL (150-450)
[2022-08-08 21:28] LABS: LIPASE 32 U/L (12-53)
[2022-08-08 21:30] LABS: ALBUMIN 3.8 G/DL (3.2-5.2); ALKALINE PHOSPHATASE 129 U/L (46-116); ALT/SGPT 31 U/L (7.0-40); AST/SGOT 11 U/L (<34); BILIRUBIN,DIRECT 0.2 MG/DL (<0.4); BILIRUBIN,TOTAL 0.5 MG/DL (0.3-1.2); BLOOD UREA NITROGEN 15 MG/DL (9-23); CALCIUM LEVEL 9.2 MG/DL (8.5-10.1); CARBON DIOXIDE LEVEL 30 MMOL/L (20-31); CHLORIDE LEVEL 110 MMOL/L (98-107); CREATININE FOR GFR 1.17 MG/DL (0.70-1.30); GLOMERULAR FILTRATION RATE > 60.0 (>56); GLUCOSE, FASTING 101 MG/DL (60-100); POTASSIUM SERUM 4.4 MMOL/L (3.5-5.1); SODIUM LEVEL 143 MMOL/L (136-145); TOTAL PROTEIN 6.6 G/DL (5.7-8.2)
[2022-08-08] MEDS ORDERED: KETOROLAC 30 MG/ML 1ML VIAL IV ONE (21:55)
[2022-08-08] MEDS ORDERED: NORCO 5/325MG TABLET (HOME DOSE PACK) PO ONE (22:40)
[2022-08-08] MEDS ORDERED: FLOM0.4C39 PO (22:41)
[2022-08-08] MEDS ORDERED: HYDR-3713 PO (22:41)
[2022-08-08 23:12] VITALS: BP 141/73
[2022-08-09] MEDS ORDERED: CLOP75TA2 PO (14:40)
[2022-08-09] MEDS ORDERED: CARV12.5 PO (14:40)
[2022-08-09] MEDS ORDERED: GABA-283 PO (14:40)
[2022-08-09] MEDS ORDERED: GABA-282 PO (15:02)
[2022-08-09] MEDS ORDERED: ISOS1TAB36 PO (15:02)
== END 2022-08-08 23:16 | disposition home or self-care (01) ==
LOC: M ED 15:13
DX: N20.1 Calculus of ureter (principal); E66.9 Obesity, unspecified; I10 Essential (primary) hypertension; E78.5 Hyperlipidemia, unspecified; Z87.442 Personal history of urinary calculi; G47.33 Obstructive sleep apnea (adult) (pediatric); Z95.5 Presence of coronary angioplasty implant and graft; Z84.1 Family history of disorders of kidney and ureter; Z79.82 Long term (current) use of aspirin; Z79.899 Other long term (current) drug therapy
CPT/HCPCS: 74176; 80048; 80076; 81001; 83690; 85025; 96374; 99284; J1885

== ENCOUNTER 2022-08-09 11:32 | Observation (INO) | payer OTHER ==
[~2022-08-09] VITALS: Ht 180.3 cm; Wt 139.3 kg
[2022-08-09] MEDS ORDERED: MORPHINE 2 MG/ML 1ML VIAL IV PRN ×2 (12:10→15:55)
[2022-08-09] MEDS ORDERED: NS 1,000 ML IV ONE (12:10)
[2022-08-09] MEDS ORDERED: ONDANSETRON 4MG 2ML VIAL IV ONE (12:10)
[2022-08-09 12:38] LABS: BASO % 0.5 % (0.0-1.0); EOS # 0.1 10^3/uL (0.0-0.5); HEMATOCRIT 35.8 % (42.0-52.0); HEMOGLOBIN 11.7 g/dl (13.5-17.5); LYMPH # 0.9 10^3/uL (1.5-5.0); LYMPH % 15.4 % (24.0-44.0); MEAN CORPUSCULAR HGB CONC 32.7 g/dl (32.0-36.5); MEAN CORPUSCULAR VOLUME 91.8 fl (80.0-96.0); MONO # 0.7 10^3/uL (0.0-0.8); MONO % 11.8 % (2.0-8.0); NEUTROPHILS # 4.3 10^3/uL (1.5-8.5); PLATELET COUNT, AUTOMATED 153 10^3/uL (150-450); WHITE BLOOD COUNT 6.1 10^3/uL (4.0-10.0)
[2022-08-09 13:06] LABS: RSV AMPLIFICATION NEGATIVE (NEGATIVE)
[2022-08-09 13:10] LABS: ALBUMIN 3.4 G/DL (3.2-5.2); BILIRUBIN,DIRECT 0.1 MG/DL (<0.4); BILIRUBIN,TOTAL 0.4 MG/DL (0.3-1.2); CALCIUM LEVEL 9.3 MG/DL (8.5-10.1); CREATININE FOR GFR 1.37 MG/DL (0.70-1.30); GLOMERULAR FILTRATION RATE 57.2 (>56); POTASSIUM SERUM 4.2 MMOL/L (3.5-5.1)
[2022-08-09] MEDS ORDERED: CARV12.5 PO (14:40)
[2022-08-09] MEDS ORDERED: GABA-283 PO (14:40)
[2022-08-09] MEDS ORDERED: CLOP75TA2 PO (14:40)
[2022-08-09] MEDS ORDERED: GABA-282 PO (15:02)
[2022-08-09] MEDS ORDERED: ISOS1TAB36 PO (15:02)
[2022-08-09] MEDS ORDERED: HOME MED LIST COMPLETE! XX SCH (15:05)
[2022-08-09] MEDS ORDERED: LIDOCAINE 5% (LIDODERM) PATCH TD ONE (15:55)
[2022-08-09 17:30] VITALS: BP 124/72
[2022-08-09] MEDS: MORPHINE 4 MG/ML 1ML VIAL IV PRN (17:55)
[2022-08-09] MEDS: LR 2,000 ML IV SCH (18:00)
[2022-08-09] MEDS: ACETAMINOPHEN 500 MG TAB PO PRN (20:17)
[2022-08-09 21:05] LABS: TOTAL PROTEIN 6.2 G/DL (5.7-8.2)
[2022-08-09 22:00] VITALS: BP 127/74
[2022-08-10] VITALS (9 sets, daily range): BP systolic 111–170; BP diastolic 48–86
[2022-08-10] MEDS: LR 2,000 ML IV SCH (00:19)
[2022-08-10] MEDS: ATORVASTATIN 20 MG TAB PO SCH ×2 (02:08→20:13)
[2022-08-10] MEDS: GABAPENTIN 300 MG CAP PO SCH ×3 (02:08→20:14)
[2022-08-10] MEDS: CARVedilol 12.5 MG TAB PO SCH ×3 (02:08→20:14)
[2022-08-10] MEDS: MORPHINE 4 MG/ML 1ML VIAL IV PRN ×4 (02:14→12:50)
[2022-08-10 06:27] LABS: HEMATOCRIT 36.8 % (42.0-52.0); HEMOGLOBIN 11.7 g/dl (13.5-17.5); MEAN CORPUSCULAR HEMOGLOBIN 29.8 pg (27.0-33.0); MEAN CORPUSCULAR HGB CONC 31.8 g/dl (32.0-36.5); MEAN CORPUSCULAR VOLUME 93.9 fl (80.0-96.0); PLATELET COUNT, AUTOMATED 151 10^3/uL (150-450); RED BLOOD COUNT 3.92 10^6/uL (4.30-6.10); WHITE BLOOD COUNT 5.8 10^3/uL (4.0-10.0)
[2022-08-10 07:05] LABS: ALBUMIN 3.2 G/DL (3.2-5.2); BILIRUBIN,TOTAL 0.6 MG/DL (0.3-1.2); CREATININE FOR GFR 2.03 MG/DL (0.70-1.30); GLOMERULAR FILTRATION RATE 36.3 (>56); POTASSIUM SERUM 4.3 MMOL/L (3.5-5.1); TOTAL PROTEIN 5.7 G/DL (5.7-8.2)
[2022-08-10] MEDS: OMEPRAZOLE 20MG CAP PO SCH (09:29)
[2022-08-10] MEDS: TAMSULOSIN 0.4 MG CAP PO SCH (09:32)
[2022-08-10] MEDS ORDERED: LIDOCAINE 2% 100MG/5ML SDV (FOR ANES.) As Ordered ONE (16:19)
[2022-08-10] MEDS ORDERED: fentaNYL 100 MCG/2 ML INJECTION As Ordered ONE (16:19)
[2022-08-10] MEDS ORDERED: propofoL 200 MG/20 ML VIAL As Ordered ONE (16:19)
[2022-08-10] MEDS ORDERED: MIDAZOLAM INJ 2MG/2ML VIAL As Ordered ONE (16:19)
[2022-08-10] MEDS ORDERED: ONDANSETRON 4MG 2ML VIAL As Ordered ONE (16:19)
[2022-08-10] MEDS ORDERED: KETOROLAC 60MG 2ML VIAL As Ordered ONE (16:20)
[2022-08-10] MEDS ORDERED: ISOVUE-300 61% 100ML VIAL As Ordered ONE (16:36)
[2022-08-10] MEDS ORDERED: ceFAZolin 2 GM/D5W 50 ML IV BAG As Ordered ONE (16:37)
[2022-08-10] MEDS ORDERED: ONDANSETRON 4MG 2ML VIAL IV PRN (16:40)
[2022-08-10] MEDS ORDERED: HYDROMORPHONE HCL 0.5 MG/ 0.5 ML SYRINGE IV PRN (16:40)
[2022-08-10] MEDS ORDERED: oxyCODONE 5MG TAB PO PRN (16:40)
[2022-08-10] MEDS ORDERED: LR 1,000 ML IV SCH (16:40)
[2022-08-10] MEDS ORDERED: fentaNYL 100 MCG/2 ML INJECTION IV PRN (16:40)
[2022-08-10] MEDS: PHENAZOPYRIDINE 100 MG TAB PO SCH (20:13)
[2022-08-10] MEDS: oxyBUTYnin 5 MG TAB PO SCH (20:14)
[2022-08-10] MEDS: ACETAMINOPHEN 500 MG TAB PO PRN (20:14)
[2022-08-11 03:20] VITALS: BP 154/63
[2022-08-11] MEDS: ACETAMINOPHEN 500 MG TAB PO PRN (03:34)
[2022-08-11 06:23] LABS: BASO % 0.1 % (0.0-1.0); HEMATOCRIT 38.9 % (42.0-52.0); HEMOGLOBIN 12.4 g/dl (13.5-17.5); LYMPH # 0.5 10^3/uL (1.5-5.0); LYMPH % 7.3 % (24.0-44.0); MEAN CORPUSCULAR HEMOGLOBIN 29.8 pg (27.0-33.0); MEAN CORPUSCULAR HGB CONC 31.9 g/dl (32.0-36.5); MEAN CORPUSCULAR VOLUME 93.5 fl (80.0-96.0); MONO # 0.5 10^3/uL (0.0-0.8); MONO % 7.3 % (2.0-8.0); NEUTROPHILS # 6.2 10^3/uL (1.5-8.5); NEUTROPHILS % 84.9 % (36.0-66.0); PLATELET COUNT, AUTOMATED 161 10^3/uL (150-450); RED BLOOD COUNT 4.16 10^6/uL (4.30-6.10); WHITE BLOOD COUNT 7.3 10^3/uL (4.0-10.0)
[2022-08-11 06:53] LABS: CALCIUM LEVEL 9.2 MG/DL (8.5-10.1); CREATININE FOR GFR 1.65 MG/DL (0.70-1.30); GLOMERULAR FILTRATION RATE 46.2 (>56); POTASSIUM SERUM 4.9 MMOL/L (3.5-5.1)
[2022-08-11 07:30] VITALS: BP 166/84
[2022-08-11] MEDS ORDERED: ACET-683 PO ×2 (09:56→09:57)
[2022-08-11] MEDS: PHENAZOPYRIDINE 100 MG TAB PO SCH (11:19)
[2022-08-11] MEDS: GABAPENTIN 300 MG CAP PO SCH (11:19)
[2022-08-11 11:20] VITALS: BP_SYST 171; BP_SYST 177; BP_DIAS 85
[2022-08-11] MEDS: oxyBUTYnin 5 MG TAB PO SCH (11:20)
[2022-08-11] MEDS: TAMSULOSIN 0.4 MG CAP PO SCH (11:20)
[2022-08-11] MEDS: OMEPRAZOLE 20MG CAP PO SCH (11:20)
[2022-08-11 11:21] VITALS: BP 171/85
[2022-08-11] MEDS: CARVedilol 12.5 MG TAB PO SCH (11:21)
[2022-08-11] MEDS ORDERED: OXYC-517 PO (14:17)
[2022-08-11] MEDS ORDERED: DICL1GEL3 TOP (14:17)
[2022-08-11] MEDS ORDERED: LIDO5TD TOP (14:17)
== END 2022-08-11 15:05 | disposition home or self-care (01) ==
LOC: M ED 11:32 → M ED INP 15:34 → ENRESERV 16:21 → M MSPAV 17:30
PROVIDERS: ADMIT Student in an Organized Health Care Education/Training Program; ATTEND Student in an Organized Health Care Education/Training Program
DX: N20.1 Calculus of ureter (principal); N13.30 Unspecified hydronephrosis; N17.9 Acute kidney failure, unspecified; A63.0 Anogenital (venereal) warts; N40.0 Benign prostatic hyperplasia without lower urinary tract symptoms; M54.9 Dorsalgia, unspecified; I10 Essential (primary) hypertension; E78.5 Hyperlipidemia, unspecified; K21.9 Gastro-esophageal reflux disease without esophagitis; I25.10 Atherosclerotic heart disease of native coronary artery without angina pectoris; D68.9 Coagulation defect, unspecified; E55.9 Vitamin D deficiency, unspecified; Z87.442 Personal history of urinary calculi; Z98.84 Bariatric surgery status; Z79.899 Other long term (current) drug therapy; Z79.02 Long term (current) use of antithrombotics/antiplatelets; Z79.82 Long term (current) use of aspirin; Z98.61 Coronary angioplasty status; Z87.891 Personal history of nicotine dependence
CPT/HCPCS: 36415; 52332; 52351; 71045; 74420; 80048; 80053; 80076; 81001; 83690; 85025; 85027; 86850; 86900; 86901; 87631; 93005; 93041; 99285; C1769; C2617; J0690; J1100; J1885; J2250; J2270; J2405; J3010

== ENCOUNTER → 2022-08-14 | Outpatient (CLI) | payer OTHER ==
[~2022-08-14] MED LIST changes: +ACET-683 PO; +CARV12.5 PO; +DICL1GEL3 TOP; +GABA-282 PO; +GABA-283 PO; +ISOS1TAB36 PO; +LIDO5TD TOP; +OXYC-517 PO
[2022-08-14 12:45] LABS: BLOOD UREA NITROGEN 13 MG/DL (9-23); CALCIUM LEVEL 9.6 MG/DL (8.5-10.1); CARBON DIOXIDE LEVEL 31 MMOL/L (20-31); CHLORIDE LEVEL 104 MMOL/L (98-107); CREATININE FOR GFR 1.02 MG/DL (0.70-1.30); GLOMERULAR FILTRATION RATE > 60.0 (>56); GLUCOSE, FASTING 118 MG/DL (60-100); POTASSIUM SERUM 4.3 MMOL/L (3.5-5.1); SODIUM LEVEL 139 MMOL/L (136-145)
== END ==
LOC: M LAB 11:08
PROVIDERS: ATTEND Student in an Organized Health Care Education/Training Program
DX: N17.9 Acute kidney failure, unspecified (principal)

== ENCOUNTER → 2022-08-29 | Outpatient (CLI) | payer OTHER ==
[2022-08-29 17:43] LABS: HEMATOCRIT 39.1 % (42.0-52.0); HEMOGLOBIN 12.5 g/dl (13.5-17.5); MEAN CORPUSCULAR HEMOGLOBIN 29.3 pg (27.0-33.0); MEAN CORPUSCULAR VOLUME 91.8 fl (80.0-96.0); PLATELET COUNT, AUTOMATED 199 10^3/uL (150-450); RED BLOOD COUNT 4.26 10^6/uL (4.30-6.10); WHITE BLOOD COUNT 4.7 10^3/uL (4.0-10.0)
[2022-08-29 18:03] LABS: BLOOD UREA NITROGEN 16 MG/DL (9-23); CALCIUM LEVEL 8.9 MG/DL (8.5-10.1); CARBON DIOXIDE LEVEL 28 MMOL/L (20-31); CHLORIDE LEVEL 106 MMOL/L (98-107); CREATININE FOR GFR 0.97 MG/DL (0.70-1.30); GLOMERULAR FILTRATION RATE > 60.0 (>56); GLUCOSE, FASTING 160 MG/DL (60-100); POTASSIUM SERUM 3.9 MMOL/L (3.5-5.1); SODIUM LEVEL 142 MMOL/L (136-145)
[2022-08-29 18:04] LABS: APPEARANCE, URINE HAZY (CLEAR); BACTERIA, URINE AUTO NEGATIVE (NEGATIVE); BILIRUBIN, URINE AUTO NEGATIVE (NEGATIVE); BLOOD, URINE BLOOD 2+ (NEGATIVE); COLOR, URINE AMBER (YELLOW); GLUCOSE, URINE (UA) AUTO NEGATIVE (NEGATIVE); KETONE, URINE AUTO NEGATIVE (NEGATIVE); LEUKOCYTE ESTERASE, URINE AUTO 3+ (NEGATIVE); MUCUS, URINE SMALL (NEGATIVE); NITRITE, URINE AUTO NEGATIVE (NEGATIVE); PROTEIN, URINE AUTO 2+ mg/dL (NEGATIVE); RBC, URINE AUTO 148 /HPF (0-3); SPECIFIC GRAVITY URINE AUTO 1.018 (1.002-1.035); SQUAMOUS EPITHELIAL CELL UR AU 0 /HPF (0-6); WBC, URINE AUTO 62 /HPF (0-3)
[2022-08-29 18:05] LABS: INR 0.99; PARTIAL THROMBOPLASTIN TIME 23.8 SECONDS (24.8-34.2); PROTHROMBIN TIME 13.3 SECONDS (12.5-14.5)
== END ==
LOC: M LAB 16:44
PROVIDERS: ATTEND Nurse Practitioner Women's Health
DX: N20.0 Calculus of kidney (principal)

== ENCOUNTER → 2022-09-04 | Outpatient (CLI) | payer OTHER | LOC: M LABSMTC 11:21 | PROVIDERS: ATTEND Anesthesiology | DX: Z01.818 Encounter for other preprocedural examination (principal); Z11.52 Encounter for screening for COVID-19 ==

== ENCOUNTER 2022-09-05 01:58 | Emergency (ER) | payer OTHER ==
[~2022-09-05] VITALS: Ht 180.3 cm; Wt 130.6 kg
[2022-09-05 02:46] LABS: BASO % 0.6 % (0.0-1.0); EOS # 0.4 10^3/uL (0.0-0.5); HEMATOCRIT 36.4 % (42.0-52.0); HEMOGLOBIN 11.8 g/dl (13.5-17.5); LYMPH # 1.3 10^3/uL (1.5-5.0); LYMPH % 25.5 % (24.0-44.0); MEAN CORPUSCULAR HEMOGLOBIN 29.6 pg (27.0-33.0); MEAN CORPUSCULAR HGB CONC 32.4 g/dl (32.0-36.5); MEAN CORPUSCULAR VOLUME 91.5 fl (80.0-96.0); MONO # 0.5 10^3/uL (0.0-0.8); MONO % 8.8 % (2.0-8.0); NEUTROPHILS # 2.9 10^3/uL (1.5-8.5); NEUTROPHILS % 56.9 % (36.0-66.0); PLATELET COUNT, AUTOMATED 178 10^3/uL (150-450); RED BLOOD COUNT 3.98 10^6/uL (4.30-6.10); WHITE BLOOD COUNT 5.1 10^3/uL (4.0-10.0)
[2022-09-05 03:10] LABS: LIPASE 65 U/L (12-53)
[2022-09-05 03:26] LABS: ALBUMIN 3.6 G/DL (3.2-5.2); ALKALINE PHOSPHATASE 152 U/L (46-116); ALT/SGPT 51 U/L (7.0-40); AST/SGOT 35 U/L (<34); BILIRUBIN,DIRECT 0.1 MG/DL (<0.4); BILIRUBIN,TOTAL 0.4 MG/DL (0.3-1.2); BLOOD UREA NITROGEN 19 MG/DL (9-23); CALCIUM LEVEL 8.8 MG/DL (8.5-10.1); CARBON DIOXIDE LEVEL 28 MMOL/L (20-31); CHLORIDE LEVEL 108 MMOL/L (98-107); CREATININE FOR GFR 1.03 MG/DL (0.70-1.30); GLOMERULAR FILTRATION RATE > 60.0 (>56); GLUCOSE, FASTING 123 MG/DL (60-100); SODIUM LEVEL 142 MMOL/L (136-145)
[2022-09-05 03:49] LABS: TOTAL PROTEIN 6.1 G/DL (5.7-8.2)
[2022-09-05] MEDS ORDERED: KETOROLAC 30 MG/ML 1ML VIAL IV ONE ×2 (05:25→08:30)
[2022-09-05] MEDS ORDERED: HYDR-4571 PO (09:52)
[2022-09-05 09:58] VITALS: BP 159/91
[2022-09-06] MEDS ORDERED: MELA10CA2 PO (14:41)
[2022-09-06] MEDS ORDERED: OXYC1TAB23 PO (14:41)
[2022-09-06] MEDS ORDERED: LISI20TA33 PO (14:41)
[2022-09-06] MEDS ORDERED: OXYB5TAB10 PO (14:41)
[2022-09-06] MEDS ORDERED: CLAR10TA7 PO (14:41)
[2022-09-06] MEDS ORDERED: CENT1TAB PO (14:41)
[2022-09-06] MEDS ORDERED: D 1010004 PO (14:41)
[2022-09-06] MEDS ORDERED: OXYM15SP2 (14:43)
[2022-09-06] MEDS ORDERED: NITR0.4S14 SL (14:56)
== END 2022-09-05 10:03 | disposition home or self-care (01) ==
LOC: M ED 01:58
DX: R10.9 Unspecified abdominal pain (principal); Z96.0 Presence of urogenital implants; I11.9 Hypertensive heart disease without heart failure; E78.5 Hyperlipidemia, unspecified; Z87.442 Personal history of urinary calculi; Z88.8 Allergy status to other drugs, medicaments and biological substances
CPT/HCPCS: 74176; 80048; 80076; 81001; 83690; 85025; 87086; 96374; 96376; 99284; J1885

== ENCOUNTER 2022-09-08 07:30 | Day surgery (SDC) | payer OTHER ==
[~2022-09-08] VITALS: Ht 180.3 cm; Wt 124.7 kg
[~2022-09-08 07:30] MED LIST changes: +CENT1TAB PO; +CLAR10TA7 PO; +D 1010004 PO; +LR 1,000 ML IV SCH; +MELA10CA2 PO; +NITR0.4S14 SL; +OXYB5TAB10 PO; +OXYC1TAB23 PO; +OXYM15SP2; +ceFAZolin SOD 1 GM in D5W MINI-BAG PLUS 50 ML IV ONE; +ceFAZolin SOD 2 GM in IV 1 EA IV ONE
[2022-09-08] MEDS ORDERED: LIDOCAINE 2% 100MG/5ML SDV (FOR ANES.) As Ordered ONE (08:01)
[2022-09-08] MEDS ORDERED: fentaNYL 100 MCG/2 ML INJECTION As Ordered ONE (08:01)
[2022-09-08] MEDS ORDERED: MIDAZOLAM INJ 2MG/2ML VIAL As Ordered ONE (08:01)
[2022-09-08] MEDS ORDERED: KETOROLAC 60MG 2ML VIAL As Ordered ONE (08:01)
[2022-09-08] MEDS ORDERED: ONDANSETRON 4MG 2ML VIAL As Ordered ONE (08:01)
[2022-09-08] MEDS ORDERED: propofoL 200 MG/20 ML VIAL As Ordered ONE (08:01)
[2022-09-08] MEDS ORDERED: ISOVUE-300 61% 100ML VIAL As Ordered ONE (08:32)
[2022-09-08] MEDS ORDERED: ePHEDrine SULFATE 25 MG/5 ML(5MG/ML) SYRINGE As Ordered ONE (09:34)
[2022-09-08] MEDS ORDERED: PHENYLephrine 500MCG 5ML (100MCG/ML) SYRINGE As Ordered ONE ×2 (09:34→09:38)
[2022-09-08] MEDS ORDERED: LR 1,000 ML IV SCH (10:20)
[2022-09-08] MEDS ORDERED: ONDANSETRON 4MG 2ML VIAL IV PRN (10:20)
[2022-09-08] MEDS ORDERED: HYDROMORPHONE HCL 0.5 MG/ 0.5 ML SYRINGE IV PRN (10:20)
[2022-09-08] MEDS ORDERED: fentaNYL 100 MCG/2 ML INJECTION IV PRN (10:20)
[2022-09-08] MEDS ORDERED: oxyCODONE 5MG TAB PO PRN (10:20)
[2022-09-08] MEDS ORDERED: oxyBUTYnin 5 MG TAB PO STA (10:45)
[2022-09-08] MEDS ORDERED: OXYB10TA23 PO (11:06)
[2022-09-08] MEDS ORDERED: VALI5TAB PO (11:06)
[2022-09-08] MEDS ORDERED: PERCOCET 5MG/325MG TAB PO PRN (11:30)
[2022-09-08 13:07] VITALS: BP 140/75
[2022-09-12 19:07] LABS: CA Hydro Phos 60 % (.); Ca Ox Monohydrate 20 % (.); Size 6x6 mm (.)
== END 2022-09-08 12:20 | disposition home or self-care (01) ==
LOC: M SDC 07:30
PROVIDERS: ATTEND Urology
DX: N20.0 Calculus of kidney (principal); I10 Essential (primary) hypertension; I20.9 Angina pectoris, unspecified; Z95.5 Presence of coronary angioplasty implant and graft; E78.00 Pure hypercholesterolemia, unspecified; K21.9 Gastro-esophageal reflux disease without esophagitis; K22.70 Barrett's esophagus without dysplasia; M54.50 Low back pain, unspecified; G47.30 Sleep apnea, unspecified; Z87.891 Personal history of nicotine dependence; Z88.8 Allergy status to other drugs, medicaments and biological substances; Z91.048 Other nonmedicinal substance allergy status; Z79.899 Other long term (current) drug therapy; Z79.82 Long term (current) use of aspirin; Z79.02 Long term (current) use of antithrombotics/antiplatelets; Z79.891 Long term (current) use of opiate analgesic
CPT/HCPCS: 52356; 76000; 82365; C1769; C1894; C2617; J0690; J1100; J1885; J2250; J2370; J2405; J3010; Q9967

== ENCOUNTER 2022-09-15 18:48 | Emergency (ER) | payer OTHER ==
[~2022-09-15] VITALS: Ht 180.3 cm; Wt 130.2 kg
[~2022-09-15 18:48] MED LIST changes: -LR 1,000 ML IV SCH; +OXYB10TA23 PO; +VALI5TAB PO; -ceFAZolin SOD 1 GM in D5W MINI-BAG PLUS 50 ML IV ONE; -ceFAZolin SOD 2 GM in IV 1 EA IV ONE
[2022-09-15] MEDS ORDERED: NS 1,000 ML IV ONE (19:30)
[2022-09-15] MEDS ORDERED: ONDANSETRON 4MG 2ML VIAL IV ONE (19:30)
[2022-09-15] MEDS ORDERED: MORPHINE 4 MG/ML 1ML VIAL IV ONE (19:30)
[2022-09-15 20:21] LABS: BASO % 0.4 % (0.0-1.0); EOS # 0.3 10^3/uL (0.0-0.5); EOS % 3.1 % (0.0-3.0); HEMATOCRIT 39.3 % (42.0-52.0); HEMOGLOBIN 12.6 g/dl (13.5-17.5); LYMPH # 0.6 10^3/uL (1.5-5.0); LYMPH % 6.9 % (24.0-44.0); MEAN CORPUSCULAR HEMOGLOBIN 29.1 pg (27.0-33.0); MEAN CORPUSCULAR HGB CONC 32.1 g/dl (32.0-36.5); MEAN CORPUSCULAR VOLUME 90.8 fl (80.0-96.0); MONO # 1.1 10^3/uL (0.0-0.8); MONO % 12.4 % (2.0-8.0); NEUTROPHILS # 6.5 10^3/uL (1.5-8.5); NEUTROPHILS % 76.8 % (36.0-66.0); PLATELET COUNT, AUTOMATED 166 10^3/uL (150-450); RED BLOOD COUNT 4.33 10^6/uL (4.30-6.10); WHITE BLOOD COUNT 8.5 10^3/uL (4.0-10.0)
[2022-09-15 20:44] LABS: ALBUMIN 3.6 G/DL (3.2-5.2); BILIRUBIN,DIRECT 0.2 MG/DL (<0.4); BILIRUBIN,TOTAL 0.5 MG/DL (0.3-1.2); TOTAL PROTEIN 6.6 G/DL (5.7-8.2)
[2022-09-15] MEDS ORDERED: cefTRIAXone SOD 1 GM in D5W MINI-BAG PLUS 50 ML IV ONE (22:20)
[2022-09-15] MEDS ORDERED: oxyBUTYnin 5 MG TAB PO ONE (22:20)
[2022-09-15] MEDS ORDERED: HYDR-3713 PO (22:34)
[2022-09-15] MEDS ORDERED: CIPR-249 PO (22:34)
[2022-09-15] MEDS ORDERED: NORCO, ANEXSIA 5/325MG TABLET (HYDROcodone/ACETAMINOPHEN) PO ONE (23:25)
[2022-09-15 23:32] VITALS: BP 140/81
[2022-09-16] MEDS ORDERED: NORCO, ANEXSIA 5/325MG TABLET (HYDROcodone/ACETAMINOPHEN) PO ONE
== END 2022-09-16 00:14 | disposition home or self-care (01) ==
LOC: M ED 18:48
DX: N20.1 Calculus of ureter (principal); I25.9 Chronic ischemic heart disease, unspecified; Z88.8 Allergy status to other drugs, medicaments and biological substances; Z79.899 Other long term (current) drug therapy; Z79.82 Long term (current) use of aspirin
CPT/HCPCS: 74176; 80047; 80076; 81001; 83690; 85025; 87086; 96365; 96375; 99284; J0696; J2270; J2405

== ENCOUNTER → 2022-09-22 | Outpatient (CLI) | payer OTHER | LOC: M RAD 14:33 | PROVIDERS: ATTEND Internal Medicine Pulmonary Disease | DX: Z12.2 Encounter for screening for malignant neoplasm of respiratory organs (principal); F17.200 Nicotine dependence, unspecified, uncomplicated ==

== ENCOUNTER → 2022-09-25 | Outpatient (CLI) | payer OTHER | LOC: M PLAIMG 08:55 | PROVIDERS: ATTEND Urology | DX: N20.0 Calculus of kidney (principal) ==

== ENCOUNTER → 2022-10-09 | Outpatient (CLI) | payer OTHER ==
[2022-10-09 19:31] LABS: HEMATOCRIT 41.4 % (42.0-52.0); HEMOGLOBIN 13.4 g/dl (13.5-17.5); MEAN CORPUSCULAR HEMOGLOBIN 29.1 pg (27.0-33.0); MEAN CORPUSCULAR HGB CONC 32.4 g/dl (32.0-36.5); PLATELET COUNT, AUTOMATED 186 10^3/uL (150-450); WHITE BLOOD COUNT 3.6 10^3/uL (4.0-10.0)
[2022-10-09 19:51] LABS: BLOOD UREA NITROGEN 17 MG/DL (9-23); CALCIUM LEVEL 8.9 MG/DL (8.5-10.1); CARBON DIOXIDE LEVEL 29 MMOL/L (20-31); CHLORIDE LEVEL 108 MMOL/L (98-107); GLOMERULAR FILTRATION RATE > 60.0 (>56); GLUCOSE, FASTING 130 MG/DL (60-100); POTASSIUM SERUM 3.8 MMOL/L (3.5-5.1); SODIUM LEVEL 143 MMOL/L (136-145)
== END ==
LOC: M PLALAB 15:21
PROVIDERS: ATTEND Urology
DX: Z01.818 Encounter for other preprocedural examination (principal); N20.0 Calculus of kidney; N39.0 Urinary tract infection, site not specified

== ENCOUNTER 2022-10-12 06:03 | Day surgery (SDC) | payer OTHER ==
[~2022-10-12] VITALS: Ht 180.3 cm; Wt 124.7 kg
[~2022-10-12 06:03] MED LIST changes: +ceFAZolin SOD 1 GM in D5W MINI-BAG PLUS 50 ML IV ONE; +ceFAZolin SOD 2 GM in IV 1 EA IV ONE
[2022-10-12] MEDS ORDERED: LIDOCAINE 2% 100MG/5ML SDV (FOR ANES.) As Ordered ONE (07:14)
[2022-10-12] MEDS ORDERED: fentaNYL 100 MCG/2 ML INJECTION As Ordered ONE (07:14)
[2022-10-12] MEDS ORDERED: MIDAZOLAM INJ 2MG/2ML VIAL As Ordered ONE (07:14)
[2022-10-12] MEDS ORDERED: propofoL 200 MG/20 ML VIAL As Ordered ONE (07:14)
[2022-10-12] MEDS ORDERED: PERC5TAB12 PO (07:56)
[2022-10-12] MEDS ORDERED: FLOM0.4C39 PO (07:56)
[2022-10-12] MEDS ORDERED: KETOROLAC 60MG 2ML VIAL As Ordered ONE (08:20)
[2022-10-12 09:10] VITALS: BP 144/76
[2022-10-12] MEDS ORDERED: LR 1,000 ML IV SCH (09:30)
== END 2022-10-12 09:22 | disposition home or self-care (01) ==
LOC: M SDC 06:03
PROVIDERS: ATTEND Urology
DX: N20.0 Calculus of kidney (principal); I10 Essential (primary) hypertension; K22.70 Barrett's esophagus without dysplasia; I25.10 Atherosclerotic heart disease of native coronary artery without angina pectoris; E78.00 Pure hypercholesterolemia, unspecified; R07.9 Chest pain, unspecified; M19.90 Unspecified osteoarthritis, unspecified site; M54.50 Low back pain, unspecified; G47.30 Sleep apnea, unspecified; R06.02 Shortness of breath; Z95.5 Presence of coronary angioplasty implant and graft; Z79.899 Other long term (current) drug therapy; Z79.82 Long term (current) use of aspirin; Z79.02 Long term (current) use of antithrombotics/antiplatelets
CPT/HCPCS: 50590; 74018; J0690; J1885; J2250; J3010

== ENCOUNTER → 2022-12-18 | Outpatient (CLI) | payer OTHER ==
[~2022-12-18] MED LIST changes: -ceFAZolin SOD 1 GM in D5W MINI-BAG PLUS 50 ML IV ONE; -ceFAZolin SOD 2 GM in IV 1 EA IV ONE
== END ==
LOC: M PAIN 13:00
PROVIDERS: ATTEND Nurse Practitioner Family
DX: M51.16 Intervertebral disc disorders with radiculopathy, lumbar region (principal); M48.07 Spinal stenosis, lumbosacral region; I10 Essential (primary) hypertension; K21.9 Gastro-esophageal reflux disease without esophagitis; Z87.891 Personal history of nicotine dependence; Z79.82 Long term (current) use of aspirin; Z79.02 Long term (current) use of antithrombotics/antiplatelets; Z79.899 Other long term (current) drug therapy

== ENCOUNTER → 2023-01-25 | Outpatient (CLI) | payer OTHER ==
[~2023-01-25] MED LIST changes: +DICL100G10 TOP; -DICL1GEL3 TOP; -GABA-283 PO; +GABA-284 PO
[2023-01-25 14:59] LABS: BASO % 0.9 % (0.0-1.0); EOS # 0.1 10^3/uL (0.0-0.5); HEMATOCRIT 43.1 % (42.0-52.0); HEMOGLOBIN 14.5 g/dl (13.5-17.5); LYMPH % 23.7 % (24.0-44.0); MEAN CORPUSCULAR HEMOGLOBIN 30.8 pg (27.0-33.0); MEAN CORPUSCULAR HGB CONC 33.6 g/dl (32.0-36.5); MEAN CORPUSCULAR VOLUME 91.5 fl (80.0-96.0); MONO # 0.4 10^3/uL (0.0-0.8); MONO % 8.3 % (2.0-8.0); NEUTROPHILS # 2.8 10^3/uL (1.5-8.5); NEUTROPHILS % 63.9 % (36.0-66.0); PLATELET COUNT, AUTOMATED 159 10^3/uL (150-450); RED BLOOD COUNT 4.71 10^6/uL (4.30-6.10); WHITE BLOOD COUNT 4.3 10^3/uL (4.0-10.0)
[2023-01-25 15:28] LABS: ALBUMIN 3.7 G/DL (3.2-5.2); ALKALINE PHOSPHATASE 134 U/L (46-116); ALT/SGPT 39 U/L (7.0-40); AST/SGOT 21 U/L (<34); BILIRUBIN,TOTAL 0.6 MG/DL (0.3-1.2); BLOOD UREA NITROGEN 14 MG/DL (9-23); CALCIUM LEVEL 9.3 MG/DL (8.5-10.1); CARBON DIOXIDE LEVEL 29 MMOL/L (20-31); CHLORIDE LEVEL 108 MMOL/L (98-107); CHOLESTEROL LEVEL 140 MG/DL (<200); CHOLESTEROL RISK RATIO 3.85 (<5); CREATININE FOR GFR 1.04 MG/DL (0.70-1.30); GLOMERULAR FILTRATION RATE > 60.0 (>56); GLUCOSE, FASTING 111 MG/DL (60-100); HDL CHOLESTEROL 36.3 MG/DL (>40); LDL CHOLESTEROL 49.1 MG/DL (<100); NON-HDL-C 103.7 MG/DL; POTASSIUM SERUM 4.1 MMOL/L (3.5-5.1); SODIUM LEVEL 145 MMOL/L (136-145); TOTAL PROTEIN 6.6 G/DL (5.7-8.2); TRIGLYCERIDES LEVEL 273 MG/DL (<150)
== END ==
LOC: M LAB 13:45
PROVIDERS: ATTEND Physician Assistant
DX: E78.2 Mixed hyperlipidemia (principal)

== ENCOUNTER → 2023-03-01 | Outpatient (CLI) | payer OTHER ==
[2023-03-01 16:13] LABS: BASO % 0.4 % (0.0-1.0); EOS # 0.2 10^3/uL (0.0-0.5); EOS % 3.3 % (0.0-3.0); HEMATOCRIT 41.2 % (42.0-52.0); HEMOGLOBIN 13.6 g/dl (13.5-17.5); LYMPH # 1.2 10^3/uL (1.5-5.0); LYMPH % 24.8 % (24.0-44.0); MEAN CORPUSCULAR HEMOGLOBIN 30.8 pg (27.0-33.0); MEAN CORPUSCULAR VOLUME 93.4 fl (80.0-96.0); MONO # 0.4 10^3/uL (0.0-0.8); MONO % 8.1 % (2.0-8.0); NEUTROPHILS # 3.1 10^3/uL (1.5-8.5); NEUTROPHILS % 63.2 % (36.0-66.0); PLATELET COUNT, AUTOMATED 168 10^3/uL (150-450); RED BLOOD COUNT 4.41 10^6/uL (4.30-6.10); WHITE BLOOD COUNT 4.8 10^3/uL (4.0-10.0)
[2023-03-01 16:24] LABS: ALBUMIN 3.4 G/DL (3.2-5.2); ALKALINE PHOSPHATASE 127 U/L (46-116); ALT/SGPT 44 U/L (7.0-40); AST/SGOT 19 U/L (<34); BILIRUBIN,TOTAL 0.4 MG/DL (0.3-1.2); BLOOD UREA NITROGEN 14 MG/DL (9-23); CALCIUM LEVEL 9.1 MG/DL (8.5-10.1); CARBON DIOXIDE LEVEL 28 MMOL/L (20-31); CHLORIDE LEVEL 107 MMOL/L (98-107); CHOLESTEROL LEVEL 130 MG/DL (<200); CHOLESTEROL RISK RATIO 3.11 (<5); CREATININE FOR GFR 1.02 MG/DL (0.70-1.30); GLOMERULAR FILTRATION RATE > 60.0 (>56); GLUCOSE, FASTING 140 MG/DL (60-100); HDL CHOLESTEROL 41.7 MG/DL (>40); LDL CHOLESTEROL 49.1 MG/DL (<100); NON-HDL-C 88.3 MG/DL; POTASSIUM SERUM 3.9 MMOL/L (3.5-5.1); SODIUM LEVEL 142 MMOL/L (136-145); TOTAL PROTEIN 6.1 G/DL (5.7-8.2); TRIGLYCERIDES LEVEL 196 MG/DL (<150)
== END ==
LOC: M LAB 14:53
PROVIDERS: ATTEND Physician Assistant
DX: E78.2 Mixed hyperlipidemia (principal)

== ENCOUNTER → 2023-05-07 | Outpatient (CLI) | payer OTHER ==
[~2023-05-07] MED LIST changes: -OXYB5TAB10 PO; +OXYB5TAB11 PO
== END ==
LOC: M PAIN 17:30
PROVIDERS: ATTEND Nurse Practitioner Family
DX: M51.16 Intervertebral disc disorders with radiculopathy, lumbar region (principal); M48.07 Spinal stenosis, lumbosacral region; G89.29 Other chronic pain; I10 Essential (primary) hypertension; K21.9 Gastro-esophageal reflux disease without esophagitis; F40.240 Claustrophobia; Z87.442 Personal history of urinary calculi; Z87.891 Personal history of nicotine dependence; Z79.82 Long term (current) use of aspirin; Z79.02 Long term (current) use of antithrombotics/antiplatelets; Z79.899 Other long term (current) drug therapy

== ENCOUNTER 2023-07-27 11:07 | Day surgery (SDC) | payer OTHER ==
[~2023-07-27] VITALS: Ht 180.3 cm; Wt 98.8 kg
[~2023-07-27 11:07] MED LIST changes: +BUSP5TA PO; +DULO1CAP4 PO; +EZET10TA21 PO; +ISOS120T7 PO; +KETO10TAB PO; +LIDOCAINE 2% 100MG/5ML SDV (FOR ANES.) As Ordered ONE; +NS 1,000 ML IV ONE; +fentaNYL 100 MCG/2 ML INJECTION As Ordered ONE; +propofoL 500 MG/50 ML VIAL As Ordered ONE
[2023-07-27 13:22] VITALS: TEMP 97.3
[2023-07-27 13:43] VITALS: BP 163/80; O2SAT 94
== END 2023-07-27 13:45 | disposition home or self-care (01) ==
LOC: M OPP 11:07
PROVIDERS: ATTEND Internal Medicine Gastroenterology
DX: Z12.11 Encounter for screening for malignant neoplasm of colon (principal); Z86.010 Personal history of colon polyps; D12.3 Benign neoplasm of transverse colon; D12.5 Benign neoplasm of sigmoid colon; D12.8 Benign neoplasm of rectum; K64.8 Other hemorrhoids; K57.30 Diverticulosis of large intestine without perforation or abscess without bleeding; K22.70 Barrett's esophagus without dysplasia; K22.89 Other specified disease of esophagus; R12 Heartburn; Z87.891 Personal history of nicotine dependence; G47.30 Sleep apnea, unspecified; I25.9 Chronic ischemic heart disease, unspecified; Z79.02 Long term (current) use of antithrombotics/antiplatelets; Z79.1 Long term (current) use of non-steroidal anti-inflammatories (NSAID); Z79.82 Long term (current) use of aspirin; Z79.899 Other long term (current) drug therapy; Z88.8 Allergy status to other drugs, medicaments and biological substances
CPT/HCPCS: 43239; 45385; 88305; J3010

== ENCOUNTER → 2024-01-23 | Outpatient (CLI) | payer OTHER ==
[~2024-01-23] MED LIST changes: +DOXY-323 PO; -DOXY-443 PO; -LIDOCAINE 2% 100MG/5ML SDV (FOR ANES.) As Ordered ONE; -NS 1,000 ML IV ONE; -OXYB5TAB11 PO; +OXYB5TAB14 PO; -fentaNYL 100 MCG/2 ML INJECTION As Ordered ONE; -propofoL 500 MG/50 ML VIAL As Ordered ONE
[2024-01-23 12:47] LABS: HEMOGLOBIN 14.1 g/dl (13.5-17.5); MEAN CORPUSCULAR HEMOGLOBIN 31.4 pg (27.0-33.0); MEAN CORPUSCULAR HGB CONC 33.6 g/dl (32.0-36.5); MEAN CORPUSCULAR VOLUME 93.5 fl (80.0-96.0); PLATELET COUNT, AUTOMATED 154 10^3/uL (150-450); RED BLOOD COUNT 4.49 10^6/uL (4.30-6.10); WHITE BLOOD COUNT 4.6 10^3/uL (4.0-10.0)
[2024-01-23 13:05] LABS: HEMOGLOBIN A1c 5.6 % (4.0-6.0)
[2024-01-23 13:14] LABS: BLOOD UREA NITROGEN 16 MG/DL (9-23); CALCIUM LEVEL 9.5 MG/DL (8.5-10.1); CARBON DIOXIDE LEVEL 31 MMOL/L (20-31); CHLORIDE LEVEL 108 MMOL/L (98-107); CREATININE FOR GFR 0.92 MG/DL (0.70-1.30); GLOMERULAR FILTRATION RATE > 60.0 (>56); GLUCOSE, FASTING 114 MG/DL (60-100); POTASSIUM SERUM 4.7 MMOL/L (3.5-5.1); SODIUM LEVEL 143 MMOL/L (136-145)
== END ==
LOC: M LAB 11:58
PROVIDERS: ATTEND Physician Assistant
DX: R73.03 Prediabetes (principal)

== ENCOUNTER → 2024-09-12 | Outpatient (CLI) | payer OTHER ==
[~2024-09-12] MED LIST changes: -DOXY-323 PO; +DOXY-441 PO; +GABA-1172 PO; -GABA-282 PO
== END ==
LOC: M RAD 14:03
PROVIDERS: ATTEND Physician Assistant
DX: Z12.2 Encounter for screening for malignant neoplasm of respiratory organs (principal); F17.211 Nicotine dependence, cigarettes, in remission

== ENCOUNTER → 2025-01-12 | Outpatient (REF) | payer OTHER ==
[~2025-01-12] MED LIST changes: +CVS10CAP8 PO; -FLOM0.4C39 PO; -MELA10CA2 PO; +TAMS-18 PO
[2025-01-12 18:40] LABS: CALCIUM LEVEL 8.7 MG/DL (8.5-10.1); CARBON DIOXIDE LEVEL 25.0 MMOL/L (20-31); CHLORIDE LEVEL 108.0 MMOL/L (98-107); CREATININE FOR GFR 1.08 MG/DL (0.70-1.30); GLOMERULAR FILTRATION RATE 79.5 (>56); POTASSIUM SERUM 4.3 MMOL/L (3.5-5.1); SODIUM LEVEL 144.0 MMOL/L (136-145)
[2025-01-12 19:12] LABS: ESTIMATED AVERAGE GLUCOSE 114.0 MG/DL (60-110)
== END ==
LOC: M LAB REF 17:32
PROVIDERS: ATTEND Physician Assistant
DX: R73.03 Prediabetes (principal)